=== PATIENT | female | born 1955 | race Caucasian/White ===

== ENCOUNTER → 2018-06-07 | Outpatient (CLI) | payer BC | LOC: YCFC.O 15:22 | PROVIDERS: ATTEND Nurse Practitioner Family | DX: R82.90 Unspecified abnormal findings in urine (principal) ==

== ENCOUNTER → 2019-01-20 | Outpatient (CLI) | payer BC | LOC: YCFC.O 09:16 | PROVIDERS: ATTEND Nurse Practitioner Family | DX: Z00.00 Encounter for general adult medical examination without abnormal findings (principal); E03.9 Hypothyroidism, unspecified; Z13.220 Encounter for screening for lipoid disorders ==

== ENCOUNTER → 2019-01-24 | Outpatient (CLI) | payer BC | LOC: YCFC.O 13:29 | PROVIDERS: ATTEND Nurse Practitioner Family | DX: R30.0 Dysuria (principal) ==

== ENCOUNTER 2019-05-03 16:07 | Emergency (ER) | payer BC ==
[2019-05-03] MEDS ORDERED: SODIUM CHLORIDE 0.9% 1000ML 1,000 ML IVS ONE (16:55)
--- NOTE | 2019-05-03 17:03 | ED.PDOC ---
History of Present Illness - General Chief Complaint: Head Injury Stated Complaint: Standing level fall w/ head injury Time Seen by Provider: 05/03/19 16:54 Source: family - sister Exam Limitations: no limitations - History of Present Illness Initial Comments: Antionette Maya 63 y/o female brought by family after she was found unresponsive by her sister unwitness fall laying on her back about 1600 H today on the pavement in a pool of blood on her head.She was found to be confused at that time but she was able to walk to the car and here in ER.She has history of Spinal meningitis 3 years ago in [place], [place] and jaw osteomyelitis right.Has also residual neuropathy and walks on walker.On her arrival speaks in full sentences but unable to recall incident.feels dizzy also with pain on her back which had been chronic. Occurred: this afternoon Severity: severe Head Injury Location: occipital Method of Injury: fell Other Pain/Injuries: see hpi Loss of Consciousness: prolonged (minutes) Associated Symptoms: other - dizziness Allergies/Adverse Reactions: Allergies NO KNOWN ALLERGY Allergy (Verified 05/03/19 16:20) Home Medications: Ambulatory Orders Escitalopram [Lexapro] 20 mg PO DAILY 05/03/19 Levothyroxine Sodium 25 mcg PO DAILY 05/03/19 Omeprazole 40 mg PO DAILY 05/03/19 Pregabalin [Lyrica] 50 mg PO BID 05/03/19 Sucralfate 1 gm PO QID 05/03/19 Review of Systems - Review of Systems Constitutional: States: no symptoms reported EENTM: States: no symptoms reported Respiratory: States: no symptoms reported Cardiology: States: no symptoms reported Gastrointestinal/Abdominal: States: no symptoms reported Genitourinary: States: no symptoms reported Musculoskeletal: States: no symptoms reported Neurological: States: see HPI All other Systems: Reviewed and Negative, No Change from Baseline Past Medical History (General) - Patient Medical History Hx Stroke: No Hx of COPD: No Hx Cardiac Disorders: No Hx Hypertension: No Hx Diabetes: No Hx Cancer: No Surgical History: other - Vaccination History Hx Tetanus, Diphtheria Vaccination: No Hx Influenza Vaccination: No Hx Pneumococcal Vaccination: No - Social History Hx Tobacco Use: Yes Hx Alcohol Use: Yes Hx Substance Use: No Hx Substance Use Treatment: No Hx Depression: Yes - Bipolar - Female History Patient is a Female of Child Bearing Age (10 -59 yrs old): No Patient : No Family Medical History - Family History Mother Family History: Unknown Living Status: Unknown Hx Family Cancer: Yes - dad and brother Physical Exam - Physical Exam General Appearance: Lethargic Head Injury: ecchymosis, swelling - left parietal area Eye Exam: bilateral normal ENT Exam: hearing grossly normal, no dental injury, clear fluid (ears) Neck Exam: normal alignment, normal inspection Cardiovascular/Respiratory: regular rate, rhythm, no M/R/G, normal peripheral pulses Gastrointestinal/Abdominal: non tender, soft, no organomegaly Back Exam: no CVA tenderness Extremity: no pedal edema, no calf tenderness 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 Exam: normal hearing, normal speech Motor/Sensory: no motor deficit, no sensory deficit Skin Exam: normal color, warm/dry - Damien Coma Score Best Eye Response ([place]): (3) open to voice Best Verbal Response ([place]): (5) oriented Best Motor Response ([place]): (6) obeys commands Damien Total: 14 Progress - Progress Progress: 05/03/19 18:05 Vital Signs - 8 hr 05/03/19 05/03/19 05/03/19 16:20 16:22 17:20 Temperature 95.3 F L Pulse Rate [R 72 72 61 finger] Respiratory 16 16 Rate Blood Pressure 124/81 125/78 [L brachial] O2 Sat by Pulse 95 95 Oximetry - Results/Orders Results/Orders: 05/03/19 17:00 EKG STAT Laboratory Results - last 24 hr 05/03/19 05/03/19 17:00 17:00 WBC 9.9 RBC 3.70 L Hgb 12.0 Hct 35.1 L MCV 94.9 MCH 32.5 H MCHC 34.3 RDW 14.2 Plt Count 418 H MPV 6.8 L Absolute Neuts (auto) 7.00 H Absolute Lymphs (auto) 2.10 Absolute Monos (auto) 0.50 Absolute Eos (auto) 0.20 Absolute Basos (auto) 0.10 Neutrophils % 70.7 Lymphocytes % 21.1 Monocytes % 5.5 Eosinophils % 2.2 Basophils % 0.5 PT 9.6 INR 0.96 PTT (SP) 23.6 Sodium 142 Potassium 3.3 L Chloride 107 Carbon Dioxide 24 Anion Gap 14.3 BUN 19 H Creatinine 0.67 BUN/Creatinine Ratio 28.4 H Random Glucose 87 Serum Osmolality 284.7 Lactic Acid 0.8 Calcium 8.9 Magnesium 1.6 L Total Bilirubin 0.4 Direct Bilirubin < 0.1 Indirect Bilirubin 0.3 AST 21 ALT 19 Alkaline Phosphatase 72 Creatine Kinase 178 H CK-MB (CK-2) 2.8 CK-MB (CK-2) % Not Reportable Troponin I < 0.02 Serum Total Protein 7.0 Albumin 3.9 - EKG/XRAY/CT CT: [id number] fracture CT Ordered: Yes - head-temporal bone fracture Departure - Departure Clinical Impression: Unwitnessed fall, Otorrhea, cerebrospinal fluid Skull fracture with cerebral contusion Qualifiers: Encounter type: initial encounter Fracture type: open Qualified Code(s): S02.91XB - Unspecified fracture of skull, initial encounter for open fracture Time of Disposition: 18:49 Disposition: Transfer to Hospital Condition: Fair Departure Forms: ED Discharge - Pt. Copy, Patient Portal Self Enrollment Referrals: Michelle Soria, [facility] [Primary Care Provider] - 1-2 Weeks Home Medications: Ambulatory Orders Escitalopram [Lexapro] 20 mg PO DAILY 05/03/19 Levothyroxine Sodium 25 mcg PO DAILY 05/03/19 Omeprazole 40 mg PO DAILY 05/03/19 Pregabalin [Lyrica] 50 mg PO BID 05/03/19 Sucralfate 1 gm PO QID 05/03/19 Transfer to Outside Facility - Transfer Information Accepting Provider:: Dr.Kirby-ER Jacob Accepting Facility: [facility] Reason for Transfer: required specialist not available - Neurosurgeon
--- NOTE | 2019-05-03 17:08 | CT ---
EXAM DESCRIPTION: Head CLINICAL HISTORY: 63 years Female Fall with head injury COMPARISON: None TECHNIQUE: Images were obtained in axial, sagittal, and coronal planes. This exam was performed according to our departmental dose-optimization program which includes use of Automated Exposure Control, adjustment of the mA and/or kV according to patient size and/or use of iterative reconstruction technique. FINDINGS: Subarachnoid blood right frontal temporal and temporal regions with suspected petechial hemorrhage. No midline shift. Small extra-axial blood collection right frontal and temporal regions likely subdural blood as well. Scalp soft tissue swelling with large hematoma posteriorly and laterally on the left. Subcutaneous air collections present in this region. Large fracture posterior left temporal bone with involvement mastoid air cells. Possible additional fractures left temporal parietal regions Fluid and mucosal thickening left mastoid air cells. No subdural or epidural fluid collections on left. No evidence for brain parenchymal hemorrhage on the left. No ventricular dilatation. No intraventricular blood collections. IMPRESSION: Large left temporal bone fracture with possible additional fractures left parietal bone as well as involvement left mastoid air cells. Associated extensive scalp soft tissue swelling with large hematoma posterior laterally on the left. No associated extra-axial blood collections or brain parenchymal abnormality on the left. Mild subarachnoid blood with suspected petechial hemorrhage and small subdural blood collection right frontotemporal and temporal regions likely contrecoup injury. No midline shift. Electronically signed by: Gracie Beverly MD 05/03/2019 5:06 PM CDT
--- NOTE | 2019-05-03 17:18 | RAD ---
EXAM: XR Chest, 1 View CLINICAL HISTORY: ams TECHNIQUE: Frontal view of the chest. COMPARISON: No relevant prior studies available. FINDINGS: Limitations: None. Lungs: Unremarkable. No consolidation. Pleural space: Unremarkable. No pneumothorax. Heart: Unremarkable. No cardiomegaly. Mediastinum: Unremarkable. Bones/joints: Unremarkable. IMPRESSION: No acute findings. Electronically signed by: Evelyn Donato MD 05/03/2019 5:16 PM CDT
--- NOTE | 2019-05-03 18:04 | CT ---
EXAM: CT Cervical Spine Without Intravenous Contrast CLINICAL HISTORY: fell and hit head TECHNIQUE: Axial computed tomography images of the cervical spine without intravenous contrast. Sagittal and coronal reformatted images were created and reviewed. This CT exam was performed using one or more of the following dose reduction techniques: automated exposure control, adjustment of the mA and/or kV according to patient size, and/or use of iterative reconstruction technique. COMPARISON: No relevant prior studies available. FINDINGS: Limitations: None. Vertebrae: There is a few millimeters of retrolisthesis of C5 with respect levels above and below. There is mild to moderate spondylosis most notable at C5-C6. There is diffuse facet arthrosis. No acute fracture. Discs/spinal canal/neural foramina: There is moderate disc space narrowing C5-C6. Mild narrowing noted at other levels. Soft tissues: There is a left temporal occipital scalp hematoma. Mastoid air cells: There is a nondepressed fracture of the left temporal bone involving the mastoid. There is left mastoid fluid. IMPRESSION: 1. There is a nondepressed fracture of the left temporal bone involving the lateral mastoid. 2. No cervical fracture. 3. There is a left temporal occipital scalp hematoma. Electronically signed by: Evelyn Donato MD 05/03/2019 6:02 PM CDT
[2019-05-03] MEDS ORDERED: MAGNESIUM SULFATE PREMIX 2GM 2 GM in PREMIX BAG 1 BAG IVPB ONE (18:33)
[2019-05-03] MEDS ORDERED: fentaNYL CITRATE INJ 50 MCG/ML AMP IV ONE (18:33)
[2019-05-03] MEDS ORDERED: TETANUS,DIPHTHERIA,PERTUSSIS 1 EA SYG IM ONE (18:36)
[2019-05-03] MEDS ORDERED: MAGNESIUM SULFATE PREMIX 2GM 50 ML IVPB ONE (19:04)
[2019-05-03 19:34] VITALS: BP 151/89; O2SAT 96
[2019-05-03 19:42] VITALS: TEMP 97.3
== END 2019-05-03 19:26 | disposition short-term general hospital (02) ==
LOC: ER 16:07
DX: S02.19XB Other fracture of base of skull, initial encounter for open fracture (principal); S00.03XA Contusion of scalp, initial encounter; G96.0 Cerebrospinal fluid leak; F31.9 Bipolar disorder, unspecified; R41.0 Disorientation, unspecified; Z86.61 Personal history of infections of the central nervous system; W18.30XA Fall on same level, unspecified, initial encounter; Y92.9 Unspecified place or not applicable
CPT/HCPCS: 36415; 70450; 71045; 72125; 80048; 80076; 82550; 82553; 83605; 84484; 85025; 85610; 85730; 90471; 90715; 93005; J3010; J3475; J7030

== ENCOUNTER → 2019-06-26 | Outpatient (CLI) | payer BC | LOC: HHH 11:06 | PROVIDERS: ATTEND Nurse Practitioner Family | DX: R82.998 Other abnormal findings in urine (principal); R35.0 Frequency of micturition; S02.82XD Fracture of other specified skull and facial bones, left side, subsequent encounter for fracture with routine healing ==

== ENCOUNTER → 2019-11-16 | Outpatient (CLI) | payer BC | LOC: YCFC.O 16:02 | PROVIDERS: ATTEND Nurse Practitioner Family | DX: R63.5 Abnormal weight gain (principal); R53.83 Other fatigue; M79.2 Neuralgia and neuritis, unspecified ==

== ENCOUNTER → 2020-02-03 | Outpatient (CLI) | payer BC | LOC: YCFC.O 14:41 | PROVIDERS: ATTEND Nurse Practitioner | DX: R19.7 Diarrhea, unspecified (principal); R14.0 Abdominal distension (gaseous) ==

== ENCOUNTER → 2020-02-16 | Outpatient (CLI) | payer BC | LOC: YCFC.O 15:46 | PROVIDERS: ATTEND Nurse Practitioner | DX: R19.7 Diarrhea, unspecified (principal); E03.9 Hypothyroidism, unspecified ==

== ENCOUNTER 2020-03-26 17:10 | Emergency (ER) | payer BC ==
[2020-03-26 17:32] VITALS: O2SAT 98
[2020-03-26] MEDS ORDERED: fentaNYL PATCH 25 MCG/HR 1 EA PATCH TD SCH (18:00)
[2020-03-26] MEDS ORDERED: NITROFURANTOIN 50 MG CAP PO ONE (18:01)
--- NOTE | 2020-03-26 18:04 | ED.PDOC ---
History of Present Illness - General Chief Complaint: Back Pain or Injury Stated Complaint: out of pain meds,low back pain,diarrhea Time Seen by Provider: 03/26/20 17:16 Source: patient Exam Limitations: no limitations - History of Present Illness Initial Comments: The patient is a 64-year-old female presented emergency room secondary to worsening abdominal pain today associated with diarrhea and some nausea. The patient ran out of her opiate pain medication about 48 hours ago. She is having increased chronic back pain as well. She has had some diaphoresis. No point abdominal pain. She thinks she may also have a small urinary tract infection based on some frequency. She has had some increased diarrhea today. She does have chronic bowel issues to start with. Timing/Duration: other - 10 hours Severity: moderate Improving Factors: nothing Worsening Factors: nothing Associated Symptoms: malaise Allergies/Adverse Reactions: Allergies Penicillins Allergy (Verified 03/26/20 17:38) Sulfa Antibiotics Allergy (Verified 03/26/20 17:38) Home Medications: Ambulatory Orders Escitalopram [Lexapro] 20 mg PO DAILY 05/03/19 Sucralfate 1 gm PO BID 05/03/19 Acyclovir [Zovirax] 400 mg PO PRN 03/26/20 Calcium & Phosphorus W/ Vitami [Citracal+D3 250-107-500 mg-mg-Unit] 3 chw PO DAILY 03/26/20 Dicyclomine HCl [Bentyl] 20 mg PO BID 03/26/20 Doxepin HCl 50 mg PO DAILY 03/26/20 Esomeprazole Magnesium 40 mg PO DAILY 03/26/20 Levothyroxine Sodium [Euthyrox] 25 mcg PO DAILY 03/26/20 Nitrofurantoin Monohydrate Mac [Macrobid] 100 mg PO BID #10 capsule 03/26/20 Oxybutynin Chloride [Oxybutynin Chloride ER] 5 mg PO DAILY 03/26/20 Oxycodone HCl [Roxicodone] 15 mg PO Q6H 03/26/20 Review of Systems - Review of Systems Constitutional: States: malaise EENTM: States: no symptoms reported Respiratory: States: no symptoms reported Cardiology: States: no symptoms reported Gastrointestinal/Abdominal: States: diarrhea, nausea Genitourinary: States: no symptoms reported Musculoskeletal: States: back pain Skin: States: no symptoms reported Neurological: States: anxiety Endocrine: States: excessive sweating All other Systems: No Change from Baseline Past Medical History (General) - Patient Medical History Hx Stroke: No Hx of COPD: No Hx Cardiac Disorders: No Hx Hypertension: No Hx Thyroid Disease: Yes - Hypo Hx Diabetes: No Hx Gastroesophageal Reflux: Yes Hx Cancer: No - Vaccination History Hx Tetanus, Diphtheria Vaccination: No Hx Influenza Vaccination: No Hx Pneumococcal Vaccination: Yes - Social History Hx Tobacco Use: Yes Hx Alcohol Use: Yes Hx Substance Use: No Hx Substance Use Treatment: No Hx Depression: Yes - Bipolar - Female History Patient : No Family Medical History - Family History Mother Family History: Unknown Living Status: Unknown Hx Family Cancer: Yes - dad and brother Physical Exam - Physical Exam General Appearance: Alert, Anxious Eye Exam: bilateral normal Ears, Nose, Throat: hearing grossly normal, normal pharynx Neck: non-tender, supple Respiratory: lungs clear, normal breath sounds, no respiratory distress, no accessory muscle use Cardiovascular/Chest: normal peripheral pulses, regular rate, rhythm, no edema Peripheral Pulses: radial,right: 2+, radial,left: 2+ Gastrointestinal/Abdominal: other - Diffuse discomfort to palpation but no point tenderness and no rebound or peritoneal signs. No palpable mass. Rectal Exam: deferred Back Exam: other - Diffuse discomfort of her low back. 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 The patient is having a fentanyl patch placed. It can remain in place for up to 72 hours. This should give her enough time to get her prescription from her routine pain management doctor as she did not have a ride to get it yesterday. She is to discontinue the patch when she resumes her routine pain medications. She is to continue her other routine home medications. She does appear to have a small urinary tract infection and will be placed on 5 days of Macrobid for that. Urine culture is being done. Keep well-hydrated. ER warnings are given. [email or web address] suresh [id number] - Results/Orders Results/Orders: Laboratory Tests 03/26/20 17:51 Urine Color Yellow Urine Appearance Sl cloudy Urine pH 5.5 Ur Specific Neeses 1.020 Urine Protein 30 Urine Glucose (UA) Negative Urine Ketones Negative Urine Blood Negative Urine Nitrite Positive H Urine Bilirubin Negative Urine Urobilinogen 0.2 Ur Leukocyte Esterase Negative Urine RBC 1-3 Urine WBC 3-5 H Ur Epithelial Cells 10-20 Urine Bacteria 3+ H Departure - Departure Clinical Impression: Opiate withdrawal, Cystitis Disposition: Discharge to Home or Self Care Condition: Fair Departure Forms: ED Discharge - Pt. Copy, Patient Portal Self Enrollment Instructions: Prescription Drug Withdrawal (DC), Urinary Tract Infection, Adult (DC) Diet: regular diet Activity: increase activity as tolerated Referrals: Suzi Concepcion FNP [Primary Care Provider] - 1-2 Weeks Prescriptions: Nitrofurantoin Monohydrate Mac [Macrobid] 100 mg PO BID #10 capsule Home Medications: Ambulatory Orders Escitalopram [Lexapro] 20 mg PO DAILY 05/03/19 Sucralfate 1 gm PO BID 05/03/19 Acyclovir [Zovirax] 400 mg PO PRN 03/26/20 Calcium & Phosphorus W/ Vitami [Citracal+D3 250-107-500 mg-mg-Unit] 3 chw PO DAILY 03/26/20 Dicyclomine HCl [Bentyl] 20 mg PO BID 03/26/20 Doxepin HCl 50 mg PO DAILY 03/26/20 Esomeprazole Magnesium 40 mg PO DAILY 03/26/20 Levothyroxine Sodium [Euthyrox] 25 mcg PO DAILY 03/26/20 Nitrofurantoin Monohydrate Mac [Macrobid] 100 mg PO BID #10 capsule 03/26/20 Oxybutynin Chloride [Oxybutynin Chloride ER] 5 mg PO DAILY 03/26/20 Oxycodone HCl [Roxicodone] 15 mg PO Q6H 03/26/20 Additional Instructions: The patient is a 64-year-old female presented emergency room with a constellation of symptoms that is most consistent with opiate withdrawal. The patient is having a fentanyl patch placed. It can remain in place for up to 72 hours. This should give her enough time to get her prescription from her routin e pain management doctor as she did not have a ride to get it yesterday. She is to discontinue the patch when she resumes her routine pain medications. She is to continue her other routine home medications. She does appear to have a small urinary tract infection and will be placed on 5 days of Macrobid for that. Urine culture is being done. Keep well-hydrated. ER warnings are given.
[2020-03-26] MEDS ORDERED: NITROFURANTOIN MONOHYDRATE MAC 100 MG CAP PO ONE (18:09)
[2020-03-26 18:29] VITALS: BP 149/88; TEMP 98.3
== END 2020-03-26 18:21 | disposition home or self-care (01) ==
LOC: ER 17:10
DX: F11.23 Opioid dependence with withdrawal (principal); N30.90 Cystitis, unspecified without hematuria; M54.5 Low back pain; F17.200 Nicotine dependence, unspecified, uncomplicated

== ENCOUNTER 2020-03-26 23:58 | Inpatient (IN) | payer BC ==
[2020-03-27] MEDS ORDERED: PROMETHAZINE HCL INJ 25 MG in SODIUM CHLORIDE 0.9% 50ML 50 ML IVPB ONE (00:03)
[2020-03-27] MEDS ORDERED: SODIUM CHLORIDE 0.9% 1000ML 1,000 ML IVS ONE (00:03)
[2020-03-27] MEDS ORDERED: PANTOPRAZOLE SODIUM IV 40 MG VIAL IV ONE (00:04)
[2020-03-27] MEDS ORDERED: LOPERAMIDE CAP 2 MG CAP PO ONE (00:04)
[2020-03-27] MEDS ORDERED: ONDANSETRON ODT 8 MG TAB SL ONE (00:06)
[2020-03-27] MEDS ORDERED: PROMETHAZINE HCL INJ 25 MG/ML VIAL ONE (00:13)
[2020-03-27] MEDS ORDERED: cefTRIAXone SODIUM 1 GM in SODIUM CHL 0.9% 50ML MIN-BAG+ 50 ML IVPB ONE (00:14)
--- NOTE | 2020-03-27 00:29 | ED.PDOC ---
History of Present Illness - General Chief Complaint: GI Problem Stated Complaint: diarrhea, vomiting Time Seen by Provider: 03/27/20 00:01 Source: patient Exam Limitations: no limitations - History of Present Illness Initial Comments: The patient is a 64-year-old female presenting to the emergency room for the second time in last 24 hours secondary to nausea vomiting and diarrhea. She was seen earlier today and it was felt that the presentation was most consistent with opiate withdrawal as she had run out of her opiates around 48 hours prior. Fentanyl patch was placed. The patient reports that the back pain is doing much better but she still having nausea vomiting and copious diarrhea. Additional information gained in the second interview shows that she had also run out of her doxepin 2 days prior. Doxepin withdrawal can lead to significant diarrhea and GI issues. The patient had a endoscopy with Dr. Gilliland last week and the patient was also started on a mild laxative at that time. Her last dose of the laxative was yesterday morning. She is not sure of what diagnosis he has given her. She is uncertain if she has inflammatory bowel disease or irritable bowel syndrome. She does take medications that are consistent with treatment for irritable bowel syndrome. She has not been on any steroids or mesalamine. No fevers. No point abdominal pain. The fentanyl patch remains in place. No syncope or near syncope. She had a stool culture and a C. difficile done about a month ago. She has been having GI issues for quite some time with. Timing/Duration: other - About 18 hours Severity: severe Improving Factors: nothing Worsening Factors: nothing Associated Symptoms: loss of appetite, malaise, nausea/vomiting Allergies/Adverse Reactions: Allergies Penicillins Allergy (Verified 03/26/20 17:38) Sulfa Antibiotics Allergy (Verified 03/26/20 17:38) Home Medications: Ambulatory Orders Escitalopram [Lexapro] 20 mg PO DAILY 05/03/19 Sucralfate 1 gm PO BID 05/03/19 Acyclovir [Zovirax] 400 mg PO PRN 03/26/20 Calcium & Phosphorus W/ Vitami [Citracal+D3 250-107-500 mg-mg-Unit] 3 chw PO DAILY 03/26/20 Dicyclomine HCl [Bentyl] 20 mg PO BID 03/26/20 Doxepin HCl 50 mg PO DAILY 03/26/20 Esomeprazole Magnesium 40 mg PO DAILY 03/26/20 Levothyroxine Sodium [Euthyrox] 25 mcg PO DAILY 03/26/20 Nitrofurantoin Monohydrate Mac [Macrobid] 100 mg PO BID #10 capsule 03/26/20 Oxybutynin Chloride [Oxybutynin Chloride ER] 5 mg PO DAILY 03/26/20 Oxycodone HCl [Roxicodone] 15 mg PO Q6H 03/26/20 Review of Systems - Review of Systems Constitutional: States: malaise EENTM: States: no symptoms reported Respiratory: States: no symptoms reported Cardiology: States: no symptoms reported Gastrointestinal/Abdominal: States: abdominal pain, diarrhea, nausea, vomiting Genitourinary: States: no symptoms reported Musculoskeletal: States: back pain Skin: States: no symptoms reported Neurological: States: no symptoms reported Endocrine: States: no symptoms reported All other Systems: No Change from Baseline Past Medical History (General) - Patient Medical History Hx Stroke: No Hx of COPD: No Hx Cardiac Disorders: No Hx Hypertension: No Hx Thyroid Disease: Yes - Hypo Hx Diabetes: No Hx Gastroesophageal Reflux: Yes Hx Cancer: No - Vaccination History Hx Tetanus, Diphtheria Vaccination: No Hx Influenza Vaccination: No Hx Pneumococcal Vaccination: Yes - Social History Hx Tobacco Use: Yes Hx Alcohol Use: Yes Hx Substance Use: No Hx Substance Use Treatment: No Hx Depression: Yes - Bipolar - Female History Patient : No Family Medical History - Family History Mother Family History: Unknown Living Status: Unknown Hx Family Cancer: Yes - dad and brother Physical Exam - Physical Exam General Appearance: Alert, Anxious Eye Exam: bilateral normal Ears, Nose, Throat: hearing grossly normal, normal pharynx Neck: non-tender, supple Respiratory: lungs clear, normal breath sounds, no respiratory distress, no accessory muscle use Cardiovascular/Chest: normal peripheral pulses, regular rate, rhythm, no edema Peripheral Pulses: radial,right: 2+, radial,left: 2+ Gastrointestinal/Abdominal: other - Diffuse vague discomfort to palpation. No rebound or peritoneal signs. No point tenderness. Rectal Exam: deferred Extremity: no pedal edema, no calf tenderness, normal capillary refill Neurologic: alert, normal mood/affect - The patient is anxious, oriented x 3 Skin Exam: normal color Comments: Laboratory Tests 03/27/20 03/27/20 03/27/20 00:25 00:25 00:25 WBC 15.2 H RBC 4.86 Hgb 14.7 Hct 44.3 MCV 91.0 MCH 30.2 MCHC 33.1 RDW 14.4 Plt Count 394 MPV 6.6 L Absolute Neuts (auto) 10.70 H Absolute Lymphs (auto) 3.10 Absolute Monos (auto) 1.30 H Absolute Eos (auto) 0.00 Absolute Basos (auto) 0.10 Neutrophils % 70.5 Lymphocytes % 20.3 Monocytes % 8.4 Eosinophils % 0.3 L Basophils % 0.5 Sodium 136 Potassium 2.6 L Chloride 106 Carbon Dioxide 14 L* Anion Gap 18.6 H BUN 16 Creatinine 0.92 BUN/Creatinine Ratio 17.4 Random Glucose 91 Serum Osmolality 272.7 L Lactic Acid 1.8 Calcium 9.7 Magnesium Total Bilirubin 1.1 H AST 1054 H ALT 910 H Alkaline Phosphatase 115 Creatine Kinase 130 CK-MB (CK-2) 4.3 CK-MB (CK-2) % Not Reportable Troponin I < 0.02 Serum Total Protein 7.5 Albumin 4.6 Globulin 2.9 Albumin/Globulin Ratio 1.6 Amylase 94 Lipase 47 TSH 03/27/20 00:25 WBC RBC Hgb Hct MCV MCH MCHC RDW Plt Count MPV Absolute Neuts (auto) Absolute Lymphs (auto) Absolute Monos (auto) Absolute Eos (auto) Absolute Basos (auto) Neutrophils % Lymphocytes % Monocytes % Eosinophils % Basophils % Sodium Potassium Chloride Carbon Dioxide Anion Gap BUN Creatinine BUN/Creatinine Ratio Random Glucose Serum Osmolality Lactic Acid Calcium Magnesium 1.4 L Total Bilirubin AST ALT Alkaline Phosphatase Creatine Kinase CK-MB (CK-2) CK-MB (CK-2) % Troponin I Serum Total Protein Albumin Globulin Albumin/Globulin Ratio Amylase Lipase TSH 3.15 CT scan abdomen pelvis was supposed to be done with IV contrast however the IV infiltrated into her arm. 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 Hepatic steatosis. There is prominent duodenum and proximal jejunum consistent with enteritis. Progress - Progress Progress: 03/27/20 02:21 Vital Signs - 24 hr 03/27/20 03/27/20 03/27/20 00:15 01:00 01:53 Temperature 97.6 F Pulse Rate [ 86 81 88 tele] Respiratory 18 18 18 Rate Blood Pressure 158/86 124/82 121/86 [Left Arm] O2 Sat by Pulse 97 97 96 Oximetry 03/27/20 02:21 The patient is a 64-year-old female presenting for the second time in 24 hours secondary to nausea vomiting and diarrhea. The presentation was initially attributed to opiate and possibly doxepin withdrawal. The placement of the fentanyl patch this morning did help significantly with the pain and the flushing however she is continued to have nausea vomiting and diarrhea. For this reason she showed back up to the emergency room tonight. She was also unable to hold down her Macrobid for the urinary tract infection. Work-up here shows what appears to be enteritis on the CT scan and either an acute or subacute hepatitis on the lab work. No elevation of alkaline phosphatase or amylase or lipase. No evidence of abnormality on the CT scan with the gallbladder or the pancreas. There is mild hepatic steatosis. It is possible that the elevated liver function tests may be related to trauma from the upper and lower endoscopy a week ago. The patient has resultant metabolic acidosis along with significant hypokalemia hypomagnesemia. She has received a liter of IV fluids. She is receiving potassium and magnesium supplements. She is also receiving acid reducing medications as well as nausea medications. The patient will likely need a right upper quadrant ultrasound tomorrow for further evaluation of the liver. The viral hepatitis panel has been sent. Blood cultures have been done. The patient is receiving doses of Levaquin and Flagyl here tonight for the possibility of a bacterial source for the leukocytosis. Stool sample is being collected to test for a culture and for C. difficile. No history of C. difficile colitis. The patient had the scope done with the gut snatcher a week ago. Hopefully tomorrow we can obtain a report of the scope and any biopsies or impressions that the gut snatcher had. Admit fo r continued care, symptom control, electrolyte correction and rehydration. The patient does likely need to be restarted on doxepin tomorrow. It is not in our pharmacy so it will need to be obtained. Admit for continued care. [email or web address] [email or web address] Departure - Departure Clinical Impression: Metabolic acidosis, Acute hepatitis, Hypokalemia, Hypomagnesemia, Dehydration Medication withdrawal Qualifiers: Substance type: opioid Qualified Code(s): F11.23 - Opioid dependence with withdrawal Disposition: Admit Patient Condition: Fair Departure Forms: ED Discharge - Pt. Copy, Patient Portal Self Enrollment Referrals: Suzi Concepcion FNP [Primary Care Provider] - 1-2 Weeks Home Medications: Ambulatory Orders Escitalopram [Lexapro] 20 mg PO DAILY 05/03/19 Sucralfate 1 gm PO BID 05/03/19 Acyclovir [Zovirax] 400 mg PO PRN 03/26/20 Calcium & Phosphorus W/ Vitami [Citracal+D3 250-107-500 mg-mg-Unit] 3 chw PO DAILY 03/26/20 Dicyclomine HCl [Bentyl] 20 mg PO BID 03/26/20 Doxepin HCl 50 mg PO DAILY 03/26/20 Esomeprazole Magnesium 40 mg PO DAILY 03/26/20 Levothyroxine Sodium [Euthyrox] 25 mcg PO DAILY 03/26/20 Nitrofurantoin Monohydrate Mac [Macrobid] 100 mg PO BID #10 capsule 03/26/20 Oxybutynin Chloride [Oxybutynin Chloride ER] 5 mg PO DAILY 03/26/20 Oxycodone HCl [Roxicodone] 15 mg PO Q6H 03/26/20 Decision To Admit - Decistion To Admit Decision to Admit Reason: Medical Nature Decision to Admit Date: 03/27/20 Decision to Admit Time: 02:27
--- NOTE | 2020-03-27 01:01 | RAD ---
CLINICAL HISTORY: nvd COMPARISON: None. TECHNIQUE: XR ABDOMEN SUPINE AND ERECT WITH CHEST (ABD ACUTE SERIES) 03/27/2020 12:03 AM CDT FINDINGS: Bowel gas pattern is nonspecific. There are no abnormal radiopaque foreign bodies or abnormal calcifications. Osseous structures are grossly unremarkable. The heart is normal in size. Lungs are clear. IMPRESSION: No bowel obstruction. Electronically signed by: Earl Sim MD 03/27/2020 1:00 AM CDT
[2020-03-27] MEDS ORDERED: POTASSIUM CHLORIDE ELIXIR 20 MEQ/15 ML UD PO ONE (01:04)
[2020-03-27] MEDS ORDERED: POTASSIUM CHLORIDE INJ 40 MEQ 40 MEQ in SODIUM CHLORIDE 0.9% 250ML 250 ML IVPB ONE (01:04)
[2020-03-27] MEDS ORDERED: metroNIDAZOLE IV PREMIX 500MG 500 MG in PREMIX BAG 1 BAG IVPB ONE (01:12)
[2020-03-27] MEDS ORDERED: levoFLOXacin 500MG IV 500 MG in PREMIX BAG 1 BAG IVPB ONE (01:12)
[2020-03-27] MEDS ORDERED: MAGNESIUM SULFATE PREMIX 4GM 4 GM in PREMIX BAG 1 BAG IVPB ONE (01:57)
--- NOTE | 2020-03-27 02:01 | CT ---
EXAM DESCRIPTION: CT ABDOMEN AND PELVIS WITH CONTRAST CLINICAL HISTORY: nvd, elevated lfts COMPARISON: None Available. TECHNIQUE: CT of the abdomen and pelvis performed following IV administration of iodinated contrast however the focal tracer there is no contrast within the vascular system. FINDINGS: Lung Bases: Minimal dependent atelectasis. Bones: Chronic appearing compression deformity of the L1 vertebral body. Endplate spondylosis of the spine. Abdomen: Liver: The liver has normal size and decreased density. No intrahepatic biliary dilatation. Gallbladder: No calcified gallstones. Spleen, Pancreas, and Adrenal Glands: The spleen, pancreas, and adrenal glands are unremarkable. Kidneys: No hydronephrosis or obstructing calculus. Punctate nonobstructing bilateral nephrolithiasis. Vasculature: Aortoiliac atherosclerosis. IVC is unremarkable. 6 mm peripherally calcified structure arising from a branch of the right renal artery may represent a small aneurysm. The portal vein is patent. The proximal visceral and renal arteries are patent. Stomach: The stomach has normal course. Other: No free intraperitoneal air. No free fluid or lymphadenopathy. Pelvis: Bladder: Urinary bladder is unremarkable. Bowel: Mild prominence of the duodenum and proximal jejunum without transition point or significant distal decompression. Appendix: Not identified. Pelvis: Uterus is not enlarged. Possible calcified uterine fibroid. IMPRESSION: 1. Findings compatible with mild nonspecific enteritis. 2. There is a 6 mm peripherally calcified structure arising from the right renal artery. This may represent a small aneurysm. Follow-up CTA of the abdomen in 6 months recommended to document stability. 3. Nonobstructing bilateral nephrolithiasis. 4. Hepatic steatosis. This exam was performed according to our departmental dose-optimization program, which includes automated exposure control, adjustment of the mA and/or kV according to patient size and/or use of iterative reconstruction technique. Electronically signed by: Harvey Draper 03/27/2020 2:00 AM CDT
--- NOTE | 2020-03-27 02:31 | HP ---
SUPERVISING PHYSICIAN: Georgi Borrego MD CHIEF COMPLAINT: Nausea, vomiting, diarrhea HISTORY OF PRESENT ILLNESS: Ms. Maya is a 64 year-old female patient who presented to the Emergency Room for her second visit within the last 24 hours due to persistent nausea and vomiting with associated diarrhea. She had been seen earlier in the Emergency Room and it was felt at that time the patient was having mild opioid withdrawals as she had run out of her Oxycodone approximately 48 hours previously. At that visit, she was started on a Fentanyl patch and noticed her symptoms returned with copious amounts of diarrhea. She does have a history of chronic diarrhea and has been worked up in the past. Within the last month she had a scope done for her GI issues. The scope was done by Dr. Gilliland last week and at that time she was started on a mild laxative. She did endorse she had finished her last laxative 24 hours prior to the initial start of these current symptoms. She has not been formally diagnosed Crohn's OR any specific medical diagnosis other than questionable Crohn's-like illness versus irritable bowel syndrome. She is taking Doxepin and did run out of that 2 days previous as well. She is not currently on any steroids or any treatments for any inflammatory disease. She had stool cultures as well as C-diff which were all done about a month previous and all were negative. On this visit to the Emergency Room, her workup did show she had a leukocytosis of 15,200 without a left shift but she had a potassium of 2.6 with anion gap of 18.6 and C02 of 14. She also has elevated liver functions in the form of AST, ALT but this per history is chronic and she has not been diagnosed with any hepatitis acutely. On her initial visit to the Emergency Room on March 26, she was also found to have a urinary tract infection and was started on Macrobid. CT of her abdomen with contrast per radiology interpretation showed findings compatible with mild nonspecific enteritis. On that same CT was noted hepatic steatosis. She was given a K rider in the Emergency Room and started on antibiotics including Levaquin and Flagyl. Given the number of times in the Emergency Room with persistent and worsening nausea, vomiting, diarrhea, the patient is going to be admitted for treatment of acute gastroenteritis and correction of her hypokalemia. She was also noted to be mildly metabolic acidotic on labs. She is admitted in stable condition. PAST MEDICAL HISTORY: 1. Chronic diarrhea currently being worked up by Dr. Gilliland with last colonoscopy 2 weeks previous. 2. 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 3. Hypothyroidism on supplementation. 4. Depression, bipolar disorder. 5. Chronic urinary tract infections. PAST SURGICAL HISTORY: 1. Tubal ligation. 2. 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 3. Right knee surgery as a child. CURRENT MEDICATIONS: 1. Sucralfate 1 gram b.i.d. 2. Oxycodone 15 mg every 6 hours. 3. Oxybutynin chloride 5 mg daily. 4. Macrobid 100 mg b.i.d. 5. Levothyroxine 25 mcg daily. 6. Esomeprazole. 7. Nexium 40 mg daily. 8. Lexapro 20 mg daily. 9. Doxepin 15 mg daily. 10. Bentyl 20 mg b.i.d. 11. Citracal daily. 12. Acyclovir 400 mg p.r.n. ALLERGIES: PENICILLIN, SULFA ANTIBIOTICS. FAMILY HISTORY: Mother at age 87 with no chronic illness. Father at age 79 with complications of hypertension, depression and diabetes. She has one sister with epilepsy. She has another sister with multiple sclerosis. She has one brother who has diabetes and hypertension. SOCIAL HISTORY: The patient lives with her sister in [place], [place]. She is . She has 3 children. 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 She currently utilizes tobacco products in the form of vaping and drinks alcohol on a rare occasion. She does not use any illicit drugs. REVIEW OF SYSTEMS: CONSTITUTIONAL: Positive for general malaise, generalized weakness, no unexplained weight loss, no fevers or chills. HEENT: Denies headaches. vision changes, sore throat. nasal congestion, earaches. CHEST: Denies shortness of breath, wheezing or coughing. HEART: Denies chest pain, palpitations, tachycardia or syncopal episodes. ABDOMEN: As noted in history of present illness. Generalized diffuse abdominal pain with associated nausea, vomiting, diarrhea. GENITOURINARY: Diagnosed with a recent urinary tract infection but denies any actual dysuria, hematuria or polyuria. MUSCULOSKELETAL: Chronic back pain. SKIN: Denies lesions, rashes, moles or unexplained changes. NEUROLOGIC: Denies ataxia, seizures, paresthesias or other neurological deficits. HEMATOLOGICAL: Denies unexplained bleeding, bruising or transfusion reactions. PHYSICAL EXAMINATION: VITAL SIGNS: Temperature 97.7, blood pressure 99/56, respirations 12, oxygen saturation(*% on tiana air. GENERAL: On examination after admission to medical/surgical floor, the patient is showing to be resting comfortably and in no acute distress. She is alert. HEENT: Tympanic membranes are clear bilaterally. Oropharynx pink with some notable dry mucous membranes. NECK: Supple, non-tender, full range of motion. No jugular venous distention. CHEST: Lungs are clear to auscultation bilaterally without rhonchi, rales, or wheezes. CARDIOVASCULAR: Regular rate and rhythm without appreciable murmurs, rubs, or gallops ABDOMEN: Soft with diffuse pain on palpation, no rebound, peritoneal or point tenderness. Bowel sounds are active. EXTREMITIES: No cyanosis, clubbing, or edema. NEUROLOGIC: Cranial nerves II through XII are grossly intact. She is alert and oriented x3. SKIN: Warm, pink and dry. RECTAL: Exam deferred. LABORATORY: White count 15,200, hemoglobin 14.7, hematocrit 44.3, platelet count at 394,000. Differential did not show to have a left shift currently. Chemistries show a metabolic acidosis with a carbon dioxide of 14, anion gap of 18.6, potassium 2.6. Sodium and chloride were normal. BUN 16, creatinine 0.92, lactic acid 1.8, calcium 9.7, magnesium 1.4, bilirubin 1.1. AST at 1054, ALT at 910. Troponin less than 0.02. Lipase normal at 47, amylase 94, TSH normal at 3.15. Hepatitis panel is pending. MICROBIOLOGY: Blood cultures are pending. RADIOLOGY: Abdominal/pelvic CT with contrast per radiology interpretation showed hepatic steatosis with findings compatible with mild nonspecific enteritis that was noted to be 6 mm peripheral calcified structure arising from the right renal artery, recommend followup in 6 months to document stability. There was note of bilateral nonobstructive nephrolithiasis. Abdominal ultrasound per radiology interpretation showed gallbladder contracted with wall thickening which may be due to contraction. There is no echogenic sludge or stones, non-tender with transducer pressure. Upper normal caliber of the common bile duct. Liver was noted with normal echogenicity, borderline enlarged. Pancreas was negative. Spleen was unremarkable. Bilateral kidneys were small with significantly thinned cortex and increased echogenicity for age suggesting medical renal disease. ASSESSMENT: 1. Acute gastroenteritis, etiology uncertain with patient having a history of irritable bowel syndrome versus nonspecific inflammatory bowel. 2. Nausea and vomiting associated with #1. 3. Chronic pain management from peripheral neuropathies on Oxycodone. 4. Urinary tract infection on Macrodantin prior to admission. 5. Electrolyte imbalance to include a hypokalemia and hypomagnesemia. 6. Metabolic acidosis secondary to #2. 7. Mild dehydration secondary to #2. 8. Elevated transaminase, etiology uncertain, followed by GI specialist, Dr. Gilliland, with hepatitis panel pending. 9. History of hypothyroidism on supplementation. 10. History of depression and bipolar disorder. PLAN: Ms. Maya is going to be admitted for intractable nausea and vomiting, questionable gastroenteritis with associated metabolic acidosis. She was given fluids in the Emergency Room. Will continue with D5 half-normal saline with 20 of potassium in efforts to replace her potassium as well as she was given a replacement of magnesium. Will put her on a clear liquid diet, encouraged p.o. hydration as well as continue with IV hydration. I anticipate her length of stay to be at least 2 to 3 days, maybe discharge later tomorrow if she continues to show improvement. She was started on antibiotics including Levaquin and Flagyl and has shown good response to that treatment. Will continue that treatment while in the hospital, possibly continue with discharge antibiotics. Will continue to monitor and treat until discharge. She will be on DVT prophylaxis per protocol. Will give her Protonix for PPI for GI protection. Will plan to repeat labs as needed. She has Zofran and Phenergan as needed for nausea and vomiting. Will resume her home medications as soon as those are updated and verified including her Oxycodone and Bentyl and Doxepin which could be resulting in some of her symptoms but she has missed several doses of this in the last 24 hours. Will hold off on any additional GI workup at this point as she has recently had a colonoscopy and is followed by GI. If she is not showing any improvement tomorrow, certainly we will touch base with Dr. Gilliland to see if he has any further recommendations on treatment but at this point, she seems to be progressing with the current treatment plan. Hopefully we will be able to transition her to outpatient management within the next 24-48 hours. Until then, we will continue to monitor and treat as needed. #[id number] [facility]
[2020-03-27] MEDS ORDERED: SODIUM CHLORIDE 0.9% (FLUSH) 10 ML SYG IV PRN (03:14)
[2020-03-27] MEDS ORDERED: PROMETHAZINE HCL INJ 25 MG in SODIUM CHLORIDE 0.9% 50ML 50 ML IVPB PRN (03:20)
[2020-03-27] MEDS ORDERED: IV SET AND CAP CHANGE INJ INJ SCH (03:30)
[2020-03-27] MEDS: KCL 20MEQ/D5 1/2NS 1,000 ML IVS PRN ×2 (03:58→13:29)
[2020-03-27] MEDS ORDERED: metroNIDAZOLE IV PREMIX 500MG 0 ML IVPB ONE (05:21)
[2020-03-27] MEDS: metroNIDAZOLE IV PREMIX 500MG 500 MG in PREMIX BAG 1 BAG IVPB SCH ×3 (06:12→22:18)
[2020-03-27] MEDS: SODIUM CHLORIDE 0.9% (FLUSH) 10 ML SYG IV SCH ×2 (09:19→20:37)
[2020-03-27] MEDS ORDERED: ESOMEPRAZOLE MAGNESIUM 40 MG PO SCH (10:30)
[2020-03-27] MEDS ORDERED: OXYCODONE HCL 15 MG PO SCH (10:30)
[2020-03-27] MEDS ORDERED: OXYBUTYNIN CHLORIDE 5 MG PO SCH (10:30)
[2020-03-27] MEDS: SUCRALFATE 1 GM TAB PO SCH ×2 (11:18→20:36)
[2020-03-27] MEDS: ESCITALOPRAM 10 MG TAB PO SCH (11:19)
[2020-03-27] MEDS: PANTOPRAZOLE SODIUM TAB 40 MG PO SCH (11:19)
[2020-03-27] MEDS: DICYCLOMINE HCL 20 MG TAB PO SCH ×2 (11:19→20:36)
[2020-03-27] MEDS: OXYBUTYNIN CL 5 MG TAB PO SCH (11:21)
--- NOTE | 2020-03-27 11:25 | US ---
EXAM DESCRIPTION: Abdomen,Complete: Ultrasound. CLINICAL HISTORY: 64 years Femaleabd pain; gastritis COMPARISON: None Available. TECHNIQUE: Transabdominal scanning: grayscale and Doppler modes. FINDINGS: Gallbladder: Gallbladder contracted even though patient fasting. No sludge or stones. Wall thickness of 4.1 mm may be artifactually increased due to contracted state. No fluid. Nontender with transducer pressure. Common bile duct: 5.6 mm upper normal caliber. Liver: Normal echogenicity with no focal lesions. Long axis right lobe 16.9 cm. Physiologic vascularity in the portal vein measuring 11 mm at the madan hepatis. No duct dilation. Smooth capsule with no ascites. Pancreas: Normal size and echogenicity with no intraluminal stones or sludge.. Abdominal aorta: Normal caliber proximal segment to the distal bifurcation. IVC: visualized; normal caliber. Spleen normal echogenicity; long axis measurement is 9.4 cm. Right kidney: 8.5 cm long axis. 6 mm mid renal cortical thickness and echogenicity greater than the liver. Duplicating collecting system. No echogenic stones or hydronephrosis. Left kidney: 9.3 cm long axis with mid renal cortical thickness 9 mm. Cortical echogenicity greater than the liver. Duplicated collecting system. No echogenic stones or hydronephrosis. IMPRESSION: 1. Gallbladder contracted with wall thickening which may be due to contraction. No echogenic sludge or stones. Nontender with transducer pressure. Upper normal caliber of the common bile duct. 2. Liver with normal echogenicity and borderline enlarged. Physiologic vascularity and otherwise unremarkable. Pancreas negative. Spleen unremarkable. 3. Bilateral kidney small with significantly thinned cortex and increased echogenicity for age, suggesting medical renal disease. Correlate with renal function studies. Electronically signed by: Bob Perrin MD 03/27/2020 11:24 AM CDT
[2020-03-27] MEDS: NON-FORMULARY MEDICATION 1 EA MIS (Doxepin Hcl [Doxepin Hcl] 50 MG) PO SCH (13:14)
[2020-03-27] MEDS ORDERED: ENOXAPARIN SODIUM 40 MG/0.4 ML SYG SUBCU ONE (19:16)
[2020-03-27] MEDS: ENOXAPARIN SODIUM 40 MG/0.4 ML SYG SUBCU SCH (20:36)
[2020-03-27] MEDS ORDERED: SODIUM CHL 0.9% 50ML MIN-BAG+ 50 ML IVPB ONE (22:41)
[2020-03-27] MEDS ORDERED: MEROPENEM 1 GM VIAL IVPB ONE (22:41)
[2020-03-27] MEDS: MEROPENEM 1 GM in SODIUM CHL 0.9% 50ML MIN-BAG+ 50 ML IVPB SCH (22:42)
[2020-03-28] MEDS: levoFLOXacin 500MG IV 500 MG in PREMIX BAG 1 BAG IVPB SCH ×2 (00:10→23:47)
[2020-03-28] MEDS: ONDANSETRON INJ 4 MG/2 ML VIAL IV PRN ×3 (04:14→22:42)
[2020-03-28] MEDS ORDERED: ACETAMINOPHEN IV 1000MG 1,000 MG in PREMIX BOTTLE 1 BOTTLE IVPB ONE (04:23)
[2020-03-28] MEDS ORDERED: ACETAMINOPHEN IV 1000MG 100 ML ONE (04:25)
[2020-03-28] MEDS: metroNIDAZOLE IV PREMIX 500MG 500 MG in PREMIX BAG 1 BAG IVPB SCH (05:31)
[2020-03-28] MEDS ORDERED: SODIUM CHL 0.9% 50ML MIN-BAG+ 50 ML IVPB ONE (05:37)
[2020-03-28] MEDS ORDERED: MEROPENEM 1 GM VIAL IVPB ONE (05:37)
[2020-03-28] MEDS: PANTOPRAZOLE SODIUM TAB 40 MG PO SCH (06:14)
[2020-03-28] MEDS: MEROPENEM 1 GM in SODIUM CHL 0.9% 50ML MIN-BAG+ 50 ML IVPB SCH ×3 (06:14→22:41)
[2020-03-28] MEDS ORDERED: KETOROLAC TROMETHAMINE INJ 30 MG/ML VIAL IV ONE (06:52)
[2020-03-28] MEDS ORDERED: LEVOTHYROXINE SODIUM 0.025 MG TAB ONE (07:38)
[2020-03-28] MEDS ORDERED: CALCIUM CARBONATE-VITAMIN D 500 MG TAB ONE (07:38)
[2020-03-28] MEDS: KCL 20MEQ/D5 1/2NS 1,000 ML IVS PRN ×2 (08:07→17:32)
[2020-03-28] MEDS: CALCIUM CARBONATE-VITAMIN D 500 MG TAB PO SCH (08:08)
[2020-03-28] MEDS: DICYCLOMINE HCL 20 MG TAB PO SCH ×2 (08:08→20:34)
[2020-03-28] MEDS: OXYBUTYNIN CL 5 MG TAB PO SCH (08:08)
[2020-03-28] MEDS: ESCITALOPRAM 10 MG TAB PO SCH (08:08)
[2020-03-28] MEDS: SUCRALFATE 1 GM TAB PO SCH ×2 (08:08→20:34)
[2020-03-28] MEDS: LEVOTHYROXINE SODIUM 0.025 MG TAB PO SCH (08:09)
[2020-03-28] MEDS: SODIUM CHLORIDE 0.9% (FLUSH) 10 ML SYG IV SCH ×2 (08:09→20:34)
[2020-03-28] MEDS: NON-FORMULARY MEDICATION 1 EA MIS (Doxepin Hcl [Doxepin Hcl] 50 MG) PO SCH (08:37)
[2020-03-28] MEDS ORDERED: CALCIUM PO SCH (09:00)
[2020-03-28] MEDS ORDERED: PHOSPHORUS PO SCH (09:00)
[2020-03-28] MEDS ORDERED: [UNRECOGNIZED DRUG - OTHER] PO SCH (09:00)
[2020-03-28] MEDS ORDERED: VITAMI PO SCH (09:00)
--- NOTE | 2020-03-28 13:34 | CONS ---
DATE OF CONSULTATION: 03/28/20 HISTORY OF PRESENT ILLNESS: The patient is a 64-year-old female who was admitted with nausea, vomiting and hypokalemia. She is under the care of a compo caster and undergoing a workup for diarrhea. She has undergone a colonoscopy recently. She was found to have elevated liver function tests and her hepatitis panel is negative. She underwent blood cultures and a urine culture which the final results are pending. She was started on Flagyl and Levaquin and has improved symptomatically. She is now afebrile. Discussion with the patient states that she does not believe she has had trouble eating fatty foods, but does have a problem with gluten, she believes. There is some question as to whether or not she could have a Crohn's disease presentation, but this has not been diagnosed. There is no history of hepatitis or jaundice. PAST MEDICAL HISTORY: 1. Diarrhea. 2. 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 3. Peripheral neuropathy. 4. Hypothyroidism. 5. Depression. 6. Bipolar. 7. Chronic urinary tract infections. PAST SURGICAL HISTORY: 1. Tubal ligation. 2. 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 3. Right knee surgery as a child. MEDICATIONS: 1. Oxycodone. 2. Sucralfate. 3. Oxybutynin. 4. Macrobid. 5. Levothyroxine. 6. Esomeprazole. 7. Nexium. 8. Lexapro. 9. Doxepin. 10. Bentyl. 11. Citracal. 12. Acyclovir. ALLERGIES: PENICILLIN, SULFA ANTIBIOTICS. FAMILY HISTORY: Positive for diabetes, depression, hypertension. She has a sister with multiple sclerosis. SOCIAL HISTORY: The patient is and lives in [place] with her sister. 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 She is vaping currently, but did smoke. There is no history of alcohol abuse or drug use. REVIEW OF SYSTEMS: Unremarkable except as noted in history of present illness. She denies headaches, sore throat, upper respiratory infection symptoms. She denies fever, chills, shortness of breath, wheezing, chest pain. She does have chronic back pain. No seizures or dizziness. Denies bruising. PHYSICAL EXAMINATION: GENERAL: The patient is awake, alert, cooperative, in no acute distress. VITAL SIGNS: The patient is currently afebrile, normotensive. HEENT: Sclerae nonicteric. Mucous membranes moist. NECK: Without adenopathy. BACK: Without CVA tenderness. CHEST: Equal breath sounds bilaterally. HEART: Regular rate and rhythm. ABDOMEN: Soft. There is mild tenderness in the right upper quadrant. There is no guarding or rebound noted. PELVIC/RECTAL: Deferred. EXTREMITIES: Without cyanosis, clubbing or edema. LABORATORY: Negative hepatitis panel. White count down to 10,000 from 15,000 on admission. Early yesterday morning, her hemoglobin was 12.9 down from 14. Platelet count 302,000, 85% neutrophils, up from 70% earlier. Chemistries show potassium has come up to 4.1 from 2.6. Creatinine 0.81, calcium 8.2, total bilirubin up to 1.5, AST and ALT elevated from 1000 and 900 on admission to 3300 and 2400. Alkaline phosphatase normal. CK and troponins normal. TSH 3.15. Amylase and lipase normal on admission. She has undergone CT scan of the abdomen which revealed no calcified stones, no dilation, no thrombosis in the liver. There is somewhat decreased density. Ultrasound revealed a contracted gallbladder with wall thickness of 4.1 mm. No sludge or stones were noted. The common bile duct was 5.6 mm. There were no focal lesions in the liver with normal vascularity. No ductal dilation and a smooth capsule. No ascites noted. ASSESSMENT: 1. Chronic diarrhea. 2. Right upper quadrant pain. 3. Leukocytosis, which is resolving. 4. Elevated liver function tests, which are increasing. PLAN: I will make the patient NPO and repeat an ultrasound in the morning along with repeat liver function tests and CBC. Otherwise, I will follow this patient with you. [facility][id number] [facility]
--- NOTE | 2020-03-28 13:48 | PN ---
SUPERVISING PHYSICIAN: Georgi Borrego MD DATE: 03/28/20 SUBJECTIVE: The patient had a fairly busy night overnight with a headache, but did resolve with some Toradol. Her liver enzymes on her lab this morning did show increase from admission, but she still is without any abdominal pain. She has had some nausea, but no vomiting. She has been afebrile. She did show a positive blood culture last night so was started on meropenem based on previous history of multiple urinary tract infections and an E. coli that was noted to be multi-drug resistant. OBJECTIVE: VITAL SIGNS: Temperature 99.1, pulse 86, blood pressure 135/72, respirations 18, saturation 94% on room air. GENERAL: This morning, the patient is resting comfortably. She notes her headache was resolved with Toradol. She is alert. CHEST: Lungs are clear to auscultation bilaterally. HEART: Regular rate and rhythm. ABDOMEN: Soft, nontender. Positive bowel sounds. EXTREMITIES: No cyanosis, clubbing or edema. NEUROLOGIC: Alert and oriented times three. LABORATORY: White count normalized to 10,000, hemoglobin stable at 12.9 and hematocrit 39.7, platelet count 302,000. Differential does show a left shift. Chemistries show a normal potassium and sodium. Chloride still remains elevated at 112. BUN is within normal limits at 13, creatinine 0.81. Anion gap remains low at 10 with carbon dioxide of 19 which is improved from admission of 14. Liver enzymes did show a significant increase overnight with total bilirubin 1.5, AST up to 3336 and ALT 2469. MICROBIOLOGY: Blood cultures remain negative except for one positive aerobic bottle that showed a gram variable hang. Wound cultures pending. Hepatitis A, B and C were negative. Please see report for details. RADIOLOGY: No additional radiographic studies. ASSESSMENT: 1. Acute gastroenteritis, etiology still uncertain, although showing the patient to be resolving with current treatment with patient having a history of irritable bowel syndrome versus nonspecific inflammatory bowel disease, being followed by GI specialist. 2. Nausea and vomiting associated with #1, now resolved. 3. Chronic pain management from peripheral neuropathies on oxycodone. 4. Gram negative hang bacteremia, etiology uncertain, possibly related to ongoing urinary tract infection with cultures pending. 5. Urinary tract infection on Macrodantin prior to admission, cultures pending, with the patient on Levaquin and meropenem now. 6. Metabolic acidosis secondary to #2, resolving with fluids. 7. Mild dehydration secondary to #2, resolving. 8. Elevated transaminases, etiology uncertain, with the patient being followed by GI specialist, Dr. Gilliland, with hepatitis panel negative for A, B and C with the patient currently asymptomatic with last liver ultrasound showing moderate hepatosteatosis. 9. History of hypothyroidism on supplementation. 10. History of depression and bipolar disorder. PLAN: We will continue current plan of care with modification of antibiotics given that she does have a gram negative hang per blood culture and put her on meropenem based on previous culture results with multi-drug resistant E. coli. I did stop her Flagyl with orders to give no more Tylenol. I have requested Dr. Taylor to review the patient's imaging studies and consult as necessary. The patient is not symptomatic in regards to any pain and clinically on labs is showing improvement in her CBC and she remains afebrile. We will advance her diet to a full liquid diet today and then advance as tolerated from there. I would anticipate we will discharge as soon as we get preliminary result of blood cultures. Until then, we will continue to monitor and treat as needed. [facility][id number] [facility]
[2020-03-28] MEDS: ENOXAPARIN SODIUM 40 MG/0.4 ML SYG SUBCU SCH (20:34)
[2020-03-29] MEDS: KETOROLAC TROMETHAMINE INJ 30 MG/ML VIAL IV SCH ×2 (00:10→05:52)
[2020-03-29] MEDS: KCL 20MEQ/D5 1/2NS 1,000 ML IVS PRN (03:38)
[2020-03-29] MEDS: MEROPENEM 1 GM in SODIUM CHL 0.9% 50ML MIN-BAG+ 50 ML IVPB SCH (05:52)
[2020-03-29] MEDS: PANTOPRAZOLE SODIUM TAB 40 MG PO SCH (05:53)
[2020-03-29 09:54] VITALS: BP 99/54; TEMP 98.5; O2SAT 91
[2020-03-29] MEDS: ESCITALOPRAM 10 MG TAB PO SCH (10:52)
[2020-03-29] MEDS: NON-FORMULARY MEDICATION 1 EA MIS (Doxepin Hcl [Doxepin Hcl] 50 MG) PO SCH (10:52)
[2020-03-29] MEDS: SUCRALFATE 1 GM TAB PO SCH (10:52)
[2020-03-29] MEDS: DICYCLOMINE HCL 20 MG TAB PO SCH (10:52)
[2020-03-29] MEDS: OXYBUTYNIN CL 5 MG TAB PO SCH (10:52)
[2020-03-29] MEDS: CALCIUM CARBONATE-VITAMIN D 500 MG TAB PO SCH (10:53)
[2020-03-29] MEDS: LEVOTHYROXINE SODIUM 0.025 MG TAB PO SCH (10:53)
[2020-03-29] MEDS: SODIUM CHLORIDE 0.9% (FLUSH) 10 ML SYG IV SCH (10:53)
--- NOTE | 2020-03-29 11:13 | US ---
EXAM DESCRIPTION: Abdomen,Limited: ULTRASOUND. CLINICAL HISTORY: elevated LFTs COMPARISON: Ultrasound abdomen March [address] abdomen. TECHNIQUE: Transabdominal scanning: reddy-scale mode. Doppler mode. FINDINGS: Gallbladder: Contracted. Minimal sludge. fluid gallbladder tesfaye Marked wall thickening 7.5 mm tender with transducer pressure.. This represents unfavorable interval change since the prior study. Common bile duct: caliber 9.2 mm markedly dilated and enlarged since the prior study.. Liver, pancreas, abdominal aorta, and right kidney are stable since the prior study. IMPRESSION: Gallbladder with thickened wall and sludge in fluid in the wall. Tender with transducer pressure. Consistent with cholecystitis, progressed since the prior study. Progressive dilation of the common bile duct. Surgical consult is recommended. Electronically signed by: Bob Perrin MD 03/29/2020 11:12 AM CDT
[2020-03-29] MEDS: ONDANSETRON INJ 4 MG/2 ML VIAL IV PRN (11:20)
--- NOTE | 2020-04-02 14:10 | DS ---
SUPERVISING PHYSICIAN: Georgi Borrego MD ADMISSION DIAGNOSIS: 1. Acute gastroenteritis, etiology uncertain with patient having a history of irritable bowel syndrome versus nonspecific inflammatory bowel. 2. Nausea and vomiting associated with #1. 3. Chronic pain management from peripheral neuropathies on oxycodone. 4. Urinary tract infection on Macrodantin prior to admission. 5. Electrolyte imbalance to include a hypokalemia and hypomagnesemia. 6. Metabolic acidosis secondary to #2. 7. Mild dehydration secondary to #2. 8. Elevated transaminase, etiology uncertain, followed by GI specialist, Dr. Gilliland, with hepatitis panel pending. 9. History of hypothyroidism on supplementation. 10. History of depression and bipolar disorder. DISCHARGE DIAGNOSIS: 1. Acute gastroenteritis, etiology uncertain, needs referral to GI specialist not available in [place]. 2. Nausea and vomiting associated with #1, resolved. 3. Gram negative hang bacteremia, etiology uncertain, likely due to underlying urinary tract infection with cultures pending at time of transfer. 4. Urinary tract infection previously on Macrobid with cultures pending with the patient transferred on Levaquin and meropenem. 5. Metabolic acidosis secondary to #2, resolved with fluids. 6. Elevated transaminases, etiology uncertain, with hepatitis panel negative with concerns for possible acute cholecystitis, needing further consultation with no surgical services available at time of transfer. 7. Chronic pain management for peripheral neuropathy on chronic oxycodone. 8. Hypothyroidism on supplementation. 9. History of depression and anxiety disorder. REASON FOR HOSPITALIZATION: Ms. Maya is a 64 year-old female patient who presented to the Emergency Room for her second visit within the last 24 hours due to persistent nausea and vomiting with associated diarrhea. She had been seen earlier in the Emergency Room and it was felt at that time the patient was having mild opioid withdrawals as she had run out of her Oxycodone approximately 48 hours previously. At that visit, she was started on a Fentanyl patch and noticed her symptoms returned with copious amounts of diarrhea. She does have a history of chronic diarrhea and has been worked up in the past. Within the last month she had a scope done for her GI issues. The scope was done by Dr. Gilliland last week and at that time she was started on a mild laxative. She did endorse she had finished her last laxative 24 hours prior to the initial start of these current symptoms. She has not been formally diagnosed Crohn's OR any specific medical diagnosis other than questionable Crohn's-like illness versus irritable bowel syndrome. She is taking Doxepin and did run out of that 2 days previous as well. She is not currently on any steroids or any treatments for any inflammatory disease. She had stool cultures as well as C-diff which were all done about a month previous and all were negative. On this visit to the Emergency Room, her workup did show she had a leukocytosis of 15,200 without a left shift but she had a potassium of 2.6 with anion gap of 18.6 and C02 of 14. She also has elevated liver functions in the form of AST, ALT but this per history is chronic and she has not been diagnosed with any hepatitis acutely. On her initial visit to the Emergency Room on March 26, she was also found to have a urinary tract infection and was started on Macrobid. CT of her abdomen with contrast per radiology interpretation showed findings compatible with mild nonspecific enteritis. On that same CT was noted hepatic steatosis. She was given a K rider in the Emergency Room and started on antibiotics including Levaquin and Flagyl. Given the number of times in the Emergency Room with persistent and worsening nausea, vomiting, diarrhea, the patient is going to be admitted for treatment of acute gastroenteritis and correction of her hypokalemia. She was also noted to be mildly metabolic acidotic on labs. She is admitted in stable condition. CONSULTATIONS: General surgeon, Dr. Taylor. Please see his medical consultation notes. LABORATORY: White count on discharge was 11,100, which was improved from admission of 15,200. She did have a left shift. Chemistries showed stable electrolytes, but her AST was elevated to 4668 and ALT to 5608. TSH normal. Bilirubin was elevated at 1.7. Hepatitis A, B and C panel negative. MICROBIOLOGY: She did have a blood culture that was positive growing gram negative hang with culture pending at time of transfer. RADIOLOGY: Initially, she had an abdominal x-ray in the ER and per radiologic interpretation showed no bowel obstruction. This was followed up with a CT of the abdomen and pelvis and per radiologic interpretation showed findings compatible with mild nonspecific enteritis. There was note a 6 mm peripheral calcified structure arising from the right renal artery. There was nonobstructing bilateral nephrolithiasis and hepatic steatosis. She then had an ultrasound of the abdomen on 03/27/[address] Taylor and per radiologic interpretation at that time showed gallbladder contracted with wall thickening which may be due to contraction. No echogenic sludge or stones. Nontender to transducer pressure, but upper normal caliber of the common bile duct. There was echogenicity and borderline enlarged. Pancreas negative. Spleen unremarkable. Please see that report for details. On date of discharge before transfer, additional ultrasound was completed and per radiologic interpretation there was note of gallbladder with thickened wall and sludge and fluid in the wall. Tender with transducer pressure and consistent with cholecystitis, which had progressed from previous study with progressive dilation of the common bile duct. Surgical consultation was recommended. Dr. Taylor was consulted. HOSPITAL COURSE: Ms. Maya was admitted initially for what seemed to be just nonspecific gastroenteritis. While in the hospital, she was stable but did have a blood culture that was positive and she was treated for urinary tract infection with gram negative hang. She was started on antibiotics initially with Levaquin and Flagyl and then changed to meropenem and Levaquin with the Flagyl dropped once she had elevation on her liver enzymes. She did get one single dose of Tylenol for fever, but that was stopped and she was treated with Motrin and Toradol for additional coverage for fever and pain. She was seen in consultation by Dr. Taylor and was stable but with concerns for developing acute cholecystitis and no surgery crew available at time of transfer and with elevating transaminases, I was able to consult with Dr. Gilliland, her GI specialist and after discussing the case with Dr. Taylor, he recommended she be transferred for further evaluation to [facility]. DISCHARGE ASSESSMENT: VITAL SIGNS: Stable with temperature 98.5, pulse 79, blood pressure 99/54, respirations 18, saturation 91 to 94% on room air. GENERAL: The patient was resting comfortably, did not appear to be in any acute distress. CHEST: Clear to auscultation bilaterally. HEART: Regular rate and rhythm. ABDOMEN: Soft with some tenderness in the upper right quadrant. No rebound tenderness, no peritoneal signs. EXTREMITIES: No edema. NEUROLOGIC: She is alert and oriented x3. PLAN: Ms. Maya was transferred for higher level of care at [facility] per Dr. Gilliland and hospital for services not available in [place]. She did have signs of acute cholecystitis with worsening liver function, therefore, more likely will need surgical intervention based on radiographic findings and there was concern the liver enzymes were also elevating at that point. She was transferred by ground via ambulance and was stable. Medical records and imaging studies were sent at time of transfer. DISPOSITION: The patient was transferred to [facility] via ground ambulance. CONDITION ON DISCHARGE: Stable, but guarded. [facility][id number] [facility]
== END 2020-03-29 12:57 | disposition short-term general hospital (02) | DRG 641 ==
LOC: ER 23:58 → MS 03-27 02:30 → OBSVTOIN 03-27 02:30
PROVIDERS: ADMIT Nurse Practitioner Acute Care; ATTEND Nurse Practitioner Family
PROC: BW211ZZ Computerized Tomography (CT Scan) of Abdomen and Pelvis using Low Osmolar Contrast (ICD-10-PCS; principal; 2020-03-27)
DX: E87.6 Hypokalemia (principal); N39.0 Urinary tract infection, site not specified; R78.81 Bacteremia; K80.00 Calculus of gallbladder with acute cholecystitis without obstruction; E87.2 Acidosis; K52.9 Noninfective gastroenteritis and colitis, unspecified; E83.42 Hypomagnesemia; E86.0 Dehydration; R74.0 Nonspecific elevation of levels of transaminase and lactic acid dehydrogenase [LDH]; K76.0 Fatty (change of) liver, not elsewhere classified; G89.29 Other chronic pain; G62.9 Polyneuropathy, unspecified; E03.9 Hypothyroidism, unspecified; F31.9 Bipolar disorder, unspecified; F41.9 Anxiety disorder, unspecified; F17.290 Nicotine dependence, other tobacco product, uncomplicated; Z88.2 Allergy status to sulfonamides; Z88.0 Allergy status to penicillin; Z79.891 Long term (current) use of opiate analgesic; Z79.899 Other long term (current) drug therapy; R51 Headache

== ENCOUNTER 2020-04-11 13:43 | Emergency (ER) | payer BC ==
[2020-04-11] MEDS ORDERED: diazePAM INJ 10 MG/2 ML SYG IV ONE (14:08)
[2020-04-11] MEDS ORDERED: fentaNYL CITRATE INJ 50 MCG/ML AMP IV ONE (14:08)
--- NOTE | 2020-04-11 14:35 | RAD ---
EXAM DESCRIPTION: Knee,Right Complete CLINICAL HISTORY: 64 years Female, pain s/p fall. TECHNIQUE: 3 views of the right knee were performed. COMPARISON: None available. FINDINGS: The visualized bones appear well mineralized. No acute fracture or dislocation. Mild tricompartmental osteoarthritis. Chondrocalcinosis. Small joint effusion. The soft tissues appear grossly unremarkable. IMPRESSION: Mild tricompartmental osteoarthritis. Chondrocalcinosis. Small joint effusion. Electronically signed by: Linda Manning MD 04/11/2020 2:34 PM CDT
[2020-04-11] MEDS ORDERED: ACETAMINOPHEN 500 MG TAB PO ONE (14:44)
[2020-04-11] MEDS ORDERED: KETOROLAC TROMETHAMINE INJ 30 MG/ML VIAL IV ONE (15:08)
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
--- NOTE | 2020-04-11 17:00 | CT ---
EXAM: CT Head and Cervical Spine Without Intravenous Contrast CLINICAL HISTORY: headache/neck pain and fever. TECHNIQUE: Axial computed tomography images of the head/brain and cervical spine without intravenous contrast. Sagittal and coronal reformatted images were created and reviewed. This CT exam was performed using one or more of the following dose reduction techniques: automated exposure control, adjustment of the mA and/or kV according to patient size, and/or use of iterative reconstruction technique. COMPARISON: No relevant prior studies available. FINDINGS: Brain: Unremarkable. No hemorrhage. No significant white matter disease. No edema. Ventricles: Unremarkable. No ventriculomegaly. Skull: No acute fracture. Sinuses: Unremarkable as visualized. No acute sinusitis. Mastoid air cells: Unremarkable as visualized. No mastoid effusion. Vertebrae: There is multilevel facet hypertrophic change and mild spondylosis. Spondylosis is more prominent at C5-C6. No acute fracture. Normal alignment. Discs/spinal canal/neural foramina: No acute findings. No spinal canal stenosis. Soft tissues: Unremarkable. IMPRESSION: 1. No acute change in the brain. 2. Chronic changes in the cervical spine without acute disease. Electronically signed by: Evelyn Donato MD 04/11/2020 4:59 PM CDT
[2020-04-11 20:30] VITALS: BP 118/66; TEMP 101; O2SAT 100
== END 2020-04-11 20:22 | disposition short-term general hospital (02) ==
LOC: ER 13:43
DX: R50.9 Fever, unspecified (principal); R51 Headache; M54.2 Cervicalgia; M25.561 Pain in right knee; M11.261 Other chondrocalcinosis, right knee; M17.11 Unilateral primary osteoarthritis, right knee; E03.9 Hypothyroidism, unspecified; K21.9 Gastro-esophageal reflux disease without esophagitis; Z86.61 Personal history of infections of the central nervous system; Z87.891 Personal history of nicotine dependence; Z79.899 Other long term (current) drug therapy; Z88.0 Allergy status to penicillin; Z88.2 Allergy status to sulfonamides; Z88.8 Allergy status to other drugs, medicaments and biological substances
CPT/HCPCS: 36415; 70450; 72125; 73562; 80053; 83605; 83690; 85025; 87040; J1885; J3010; J3360

== ENCOUNTER 2020-05-08 00:29 | Emergency (ER) | payer BC ==
[2020-05-08] MEDS ORDERED: KETOROLAC TROMETHAMINE INJ 60 MG/2 ML VIAL IM ONE (01:47)
[2020-05-08] MEDS ORDERED: methylPREDNISolone ACETATE 80 MG/ML VIAL IM ONE (01:47)
--- NOTE | 2020-05-08 01:48 | ED.PDOC ---
History of Present Illness - General Chief Complaint: Back Pain or Injury Stated Complaint: LBP Time Seen by Provider: 05/08/20 00:48 Source: patient Exam Limitations: no limitations - History of Present Illness Initial Comments: CHRONIC LBP, UNCHANGED FROM BASELINE. PT SEES DR. ADAME FOR PAIN MGMT FOR CHRONIC LBP. SHE RAN OUT OF HER NARCOTICS YESTERDAY AND GO A NEW RX BUT INSURANCE DOESN'T PAY FOR THE REFILL UNTIL WEDNESDAY (TOMORROW). Quality/Severity: moderate Back Pain Location: lumbar spine Back Pain Radiation: lower legs Method of Injury/Prior Injury: other - NO RECENT TRAUMA. Improving Factors: nothing Worsening Factors: nothing Associated Symptoms: denies symptoms Allergies/Adverse Reactions: Allergies Penicillins Allergy (Verified 04/11/20 14:14) Sulfa Antibiotics Allergy (Verified 04/11/20 14:14) Trazodone Allergy (Verified 04/11/20 14:14) Home Medications: Ambulatory Orders Escitalopram [Lexapro] 20 mg PO BID 05/03/19 Sucralfate 1 gm PO BID 05/03/19 Acyclovir [Zovirax] 400 mg PO PRN 03/26/20 Calcium & Phosphorus W/ Vitami [Citracal+D3 250-107-500 mg-mg-Unit] 3 chw PO DAILY 03/26/20 Dicyclomine HCl [Bentyl] 20 mg PO BID 03/26/20 Esomeprazole Magnesium 40 mg PO DAILY 03/26/20 Levothyroxine Sodium [Euthyrox] 25 mcg PO DAILY 03/26/20 Oxybutynin Chloride [Oxybutynin Chloride ER] 5 mg PO DAILY 03/26/20 Oxycodone HCl [Roxicodone] 15 mg PO Q6H 03/26/20 Magnesium [Magnesium 250 mg] 1 tab PO DAILY 04/11/20 Methylcellulose (Laxative) [Citrucel] 500 mg PO TID 04/11/20 Nitrofurantoin Monohydrate Mac [Macrobid] 100 mg PO DAILY 04/11/20 Potassium 99 mg PO DAILY 04/11/20 Review of Systems - Review of Systems Constitutional: States: no symptoms reported. Denies: chills, fever EENTM: States: no symptoms reported Respiratory: States: no symptoms reported Cardiology: States: no symptoms reported Gastrointestinal/Abdominal: States: no symptoms reported Genitourinary: States: no symptoms reported Musculoskeletal: States: see HPI, back pain. Denies: neck pain Skin: States: no symptoms reported Neurological: States: other - CHRONIC BLLE NEUROPATHY Endocrine: States: no symptoms reported Hematologic/Lymphatic: States: no symptoms reported All other Systems: Reviewed and Negative Past Medical History (General) - Patient Medical History Hx Seizures: No Hx Stroke: No Hx Dementia: No Hx Asthma: No Hx of COPD: No Hx Cardiac Disorders: No Hx Congestive Heart Failure: No Hx Pacemaker: No Hx Hypertension: No Hx Thyroid Disease: Yes Hx Diabetes: No Hx Gastroesophageal Reflux: Yes Hx Renal Disease: No Hx Cancer: No Hx of HIV: No Hx Hepatitis C: No Hx MRSA: No Surgical History: no surgical history - Vaccination History Hx Tetanus, Diphtheria Vaccination: No Hx Influenza Vaccination: No Hx Pneumococcal Vaccination: No - Social History Hx Tobacco Use: No Hx Chewing Tobacco Use: No Hx Alcohol Use: No Hx Substance Use: No Hx Substance Use Treatment: No Hx Depression: No Feels Threatened In Home Enviroment: No Feels Threatened In a Relationship: No Hx Physical Abuse: No Hx Emotional Abuse: No Hx Suspected Abuse: No - Female History Patient is a Female of Child Bearing Age (10 -59 yrs old): No Patient : No Family Medical History - Family History Mother Family History: Unknown Living Status: Unknown Hx Family Cancer: Yes Father Living Status: Unknown Hx Family Cancer: Yes - and brother Physical Exam - Physical Exam General Appearance: Alert, No apparent distress Eyes, Ears, Nose, Throat Exam: PERRL/EOMI, normal ENT inspection Neck Exam: full range of motion, normal inspection Cardiovascular/Respiratory: regular rate, rhythm, no M/R/G Peripheral Pulses: dorsalis pedis,right: 2+, dorsalis pedis,left: 2+, posterior tibialis,right: 2+, posterior tibialis,left: 2+ Gastrointestinal/Abdominal: non tender, soft Back Exam: normal inspection, vertebral tenderness - CHRONIC, UNCHANGED FROM BASELINE PER PT. , other - POS BL STRAIGHT LEG RAISE. POS BL SUJATA/FADIR. Extremity Exam: no evidence of injury, normal range of motion, no pedal edema Neurologic: no motor/sensory deficits, normal mood/affect Skin Exam: normal color, warm/dry Progress - Results/Orders Results/Orders: I EXPLAINED TO PT I CAN GIVE (NON-NARCOTIC) SHOTS TO HELP HER PAIN BUT CANNOT RX NARCOTICS, IT WOULD VIOLATE HER PAIN CONTRACT WITH DR. ADAME. I ALSO EXPLAINED SHE CAN FILL PART OF HER RX A COUPLE DAYS EARLY IF NEEDED BY PAYING CAPPS, USING [facility], FOR EXAMPLE, AND THEN FILLING THE REST WITH INSURANCE. Departure - Departure Clinical Impression: Chronic radicular low back pain Chronic lumbar pain Qualifiers: Back pain laterality: bilateral Sciatica presence: with sciatica Sciatica laterality: bilateral sciatica Qualified Code(s): M54.42 - Lumbago with sciatica, left side Disposition: Discharge to Home or Self Care Condition: Good Departure Forms: ED Discharge - Pt. Copy, Patient Portal Self Enrollment Instructions: DI for Low Back Pain, Back Precautions Diet: resume usual diet Activity: increase activity as tolerated Referrals: Suzi Concepcion FNP [Primary Care Provider] - 1-2 Weeks Home Medications: Ambulatory Orders Escitalopram [Lexapro] 20 mg PO BID 05/03/19 Sucralfate 1 gm PO BID 05/03/19 Acyclovir [Zovirax] 400 mg PO PRN 03/26/20 Calcium & Phosphorus W/ Vitami [Citracal+D3 250-107-500 mg-mg-Unit] 3 chw PO DAILY 03/26/20 Dicyclomine HCl [Bentyl] 20 mg PO BID 03/26/20 Esomeprazole Magnesium 40 mg PO DAILY 03/26/20 Levothyroxine Sodium [Euthyrox] 25 mcg PO DAILY 03/26/20 Oxybutynin Chloride [Oxybutynin Chloride ER] 5 mg PO DAILY 03/26/20 Oxycodone HCl [Roxicodone] 15 mg PO Q6H 03/26/20 Magnesium [Magnesium 250 mg] 1 tab PO DAILY 04/11/20 Methylcellulose (Laxative) [Citrucel] 500 mg PO TID 04/11/20 Nitrofurantoin Monohydrate Mac [Macrobid] 100 mg PO DAILY 04/11/20 Potassium 99 mg PO DAILY 04/11/20 Additional Instructions: Please follow-up with Dr. Adame, as scheduled.
[2020-05-08 04:58] VITALS: BP 158/88; TEMP 97.9; O2SAT 96
== END 2020-05-08 02:00 | disposition home or self-care (01) ==
LOC: ER 00:29
DX: M54.42 Lumbago with sciatica, left side (principal); G89.29 Other chronic pain
CPT/HCPCS: J1030; J1885

== ENCOUNTER → 2020-06-13 | Outpatient (CLI) | payer BC | LOC: YCFC.O 12:00 | PROVIDERS: ATTEND Nurse Practitioner | DX: N39.0 Urinary tract infection, site not specified (principal) ==

== ENCOUNTER 2020-07-04 13:07 | Inpatient (IN) | payer BC ==
--- NOTE | 2020-07-04 13:09 | HP ---
SUPERVISING PHYSICIAN: VERN VEGAS MD CHIEF COMPLAINT: Urinary tract infection. HISTORY OF PRESENT ILLNESS: This is a 64 year-old female patient who has an extensive history of urinary tract infections. She had gone to [facility] and saw the Nurse Practitioner there several weeks ago for recurring urinary tract infection. The TRANSPORTATION AGENT set her up with a urologist and prior to sending her to the urologist she put her on Macrobid. The patient saw the urologist, a urine culture was done and the patient was placed on Cipro. She finished her Cipro prescription yesterday and her urinalysis came back with a drug-resistant Klebsiella. It is resistant to all p.o. medication. She was sent to the hospital for a direct admission. Her initial vital signs were temperature of 96.7 with heart rate of 86, blood pressure 112/77, respiratory rate of 16, oxygen saturation of 92% on room air. Lab was done and she had a WBC of 7.4 with hemoglobin of 12.2, hematocrit 36.6. ESR was 25. Chemistries were unremarkable except for her potassium was low at 3.4 and her magnesium was low at 1.7. C-reactive protein was high at 1.2. TSH was 3.13. Urinalysis was unremarkable. Urine culture and sensitivity is on the chart. Blood cultures were drawn and urine culture is pending. Chest x-ray showed no acute process identified in the chest. CT of the abdomen and pelvis showed a large amount of fecal material in the colon consistent with constipation and tiny obstructing calculi in the kidneys, sacral lucency probably large Tarlov cyst. She was started on meropenem and a PICC line was ordered. She was placed in observation in the hospital. PAST MEDICAL HISTORY: 1. Chronic back pain. [place] 2. Hypothyroidism. 3. Bipolar depression. 4. Chronic urinary tract infections. 5. Osteomyelitis of the jaw. 6. Meningitis x2. PAST SURGICAL HISTORY: 1. Tubal ligation. 2. Multiple jaw surgeries due to the osteomyelitis. 3. Right knee surgery as a child. CURRENT MEDICATIONS: Per the EMR. ALLERGIES: PENICILLIN, SULFA, TRAZODONE. FAMILY HISTORY: Positive for hypertension, depression and diabetes. SOCIAL HISTORY: The patient lives with her sister in [place], [place]. She is . She has 3 children. 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 She quit smoking several years ago but she continues to vape and she drinks alcohol on a social basis. She denies any illicit drug use. REVIEW OF SYSTEMS: GENERAL: Negative for fever, fatigue, weight changes. HEENT: Degenerative for sinus symptoms, ear pain, vision changes, sore throat. CHEST: Negative for shortness of breath, wheezing or coughing. HEART: Negative for chest pain, palpitations, tachycardia. ABDOMEN: Negative for nausea, vomiting, diarrhea or constipation. GENITOURINARY: Positive for frequent urinary tract infections, negative for hematuria, dysuria or polyuria. MUSCULOSKELETAL: Positive for chronic back pain. Negative for arthralgias, myalgias. SKIN: Negative for lesions or rashes. NEUROLOGIC: Negative for headaches, weakness, seizures. PHYSICAL EXAMINATION: VITAL SIGNS: Temperature 97.9, heart rate 80, blood pressure 106/69, respirations 16, oxygen saturation 97%. GENERAL: This is a 64 year-old female patient lying in her hospital bed. She is in no acute distress. HEENT: Normocephalic and atraumatic. Pupils are equal and reactive. Oropharynx is clear. . NECK: Supple without mass. CHEST: Essentially clear to auscultation bilaterally. Chest has equal rise and fall with inspiration and expiration. CARDIOVASCULAR: Regular rate and rhythm. ABDOMEN: Soft, non-tender, nondistended. Bowel sounds are positive.. EXTREMITIES: No cyanosis, clubbing, or edema. NEUROLOGIC: Cranial nerves II through XII are grossly intact as tested. She is awake, alert and oriented x3. SKIN: Warm and dry. IMPRESSION: 1. Acute on chronic multi-drug resistant urinary tract infection. Her culture shows positive for Klebsiella. 2. History of meningitis. 3. Constipation. 4. Chronic back pain presently on pain management per Dr. Adame in [place]. 5. Hypothyroidism. 6. Bipolar depression. PLAN: The patient has been placed in observation. She will have Meropenem. I have also ordered a PICC line to be placed as she will have to have outpatient IV antibiotics. Her home medications will be restarted as soon as thy are verified. I will give her a dose of milk of Invieo. I will need to contact Infectious Disease tomorrow to see the recommended length of treatment for her IV antibiotics. She will be on Lovenox for DVT prophylaxis and a PPI for ulcer prophylaxis. Routine labs will be drawn in the morning and hopefully she can be discharged tomorrow or the next day with close followup with the TRANSPORTATION AGENT at [facility] and her urologist. #[id number] G[facility]ELA
[2020-07-04] MEDS ORDERED: SODIUM CHLORIDE 0.9% (FLUSH) 10 ML SYG IV PRN (13:47)
[2020-07-04] MEDS: IV SET AND CAP CHANGE INJ INJ SCH (14:19)
--- NOTE | 2020-07-04 15:40 | RAD ---
EXAM DESCRIPTION: Chest,1 View CLINICAL HISTORY: 64 years Female, admit COMPARISON: Previous study May 03, 2019 TECHNIQUE: AP portable chest. FINDINGS: Heart size is normal with normal pulmonary vascularity. No consolidating infiltrate. No pulmonary mass or worrisome nodule. No pneumothorax or pleural effusion. Bones are unremarkable. IMPRESSION: No acute process is identified in the chest. Electronically signed by: Arnol Odonnell MD 07/04/2020 3:39 PM CDT
--- NOTE | 2020-07-04 15:50 | CT ---
EXAM DESCRIPTION: CT ABDOMEN AND PELVIS WITHOUT AND WITH CONTRAST CLINICAL HISTORY: drug resistant uti r/o pyelo COMPARISON: Ultrasound abdomen March 29, 2020, CT abdomen and pelvis March 27, 2020 TECHNIQUE: CT of the abdomen and pelvis are performed prior to and during IV bolus administration of 100 mL of Isovue 300. Oral contrast media is administered as well. FINDINGS: CT abdomen The lung bases are clear of infiltrate. Liver is normal in size and parenchymal appearance on the precontrast images. Tiny nonobstructing bilateral renal calculi. Spleen, pancreas, and kidneys are otherwise unremarkable. There is no lymphadenopathy, inflammation, or free fluid observed. Large amount of fecal material throughout the colon consistent with constipation. No obstructing rectal or colonic mass. Postcontrast images show normal enhancement of the liver, spleen, pancreas and kidneys. Normal enhancement of upper abdominal vessels. No aortic aneurysm. Delayed postcontrast images show normal contrast accumulation in the urinary collecting systems. No filling defects in the renal pelves or ureters or bladder. No inflammation around the kidneys or perfusion defects of the renal parenchyma to suggest active pyelonephritis. CT pelvis No inflammation is seen around the cecum or terminal ileum or sigmoid colon. Appendix is normal in appearance. No stones are seen in the distal ureters or bladder. Normal pelvic small bowel loops. No fracture or lytic lesion of the osseous structures. Large Tarlov cysts in the sacrum incidentally noted with appearance unchanged compared to the previous study. Postcontrast images show normal enhancement of the pelvic vessels. Uterus and ovaries appear normal for age other than right-sided calcification in the uterus consistent with degenerated fibroid. Coronal and sagittal reformatted images confirm the findings. IMPRESSION: Large amount of fecal material in the colon consistent with constipation. Tiny nonobstructing calculi in the kidneys. Sacral lucency probably large Tarlov cysts. This exam was performed according to our departmental dose-optimization program, which includes automated exposure control, adjustment of the mA and/or kV according to patient size and/or use of iterative reconstruction technique. Electronically signed by: Arnol Odonnell MD 07/04/2020 3:48 PM CDT
[2020-07-04] MEDS: MEROPENEM 1 GM in SODIUM CHL 0.9% 50ML MIN-BAG+ 50 ML IVPB SCH (17:31)
[2020-07-04] MEDS ORDERED: MAGNESIUM SULFATE PREMIX 2GM 2 GM in PREMIX BAG 1 BAG IVPB ONE (18:17)
[2020-07-04] MEDS ORDERED: MAGNESIUM SULFATE PREMIX 2GM 50 ML IVPB ONE (18:29)
[2020-07-04] MEDS ORDERED: OXYCODONE HCL 15 MG PO SCH (18:30)
[2020-07-04] MEDS ORDERED: ENOXAPARIN SODIUM 40 MG/0.4 ML SYG SUBCU SCH (21:00)
[2020-07-04] MEDS: SUCRALFATE 1 GM TAB PO SCH (21:41)
[2020-07-04] MEDS: SODIUM CHLORIDE 0.9% (FLUSH) 10 ML SYG IV SCH (21:41)
[2020-07-04] MEDS: DICYCLOMINE HCL 20 MG TAB PO SCH (21:41)
[2020-07-04] MEDS: DOXEPIN HCL 50 MG PO SCH (21:42)
[2020-07-04] MEDS ORDERED: MAGNESIUM HYDROXIDE 30 ML UD PO ONE (22:52)
[2020-07-05] MEDS: MEROPENEM 1 GM in SODIUM CHL 0.9% 50ML MIN-BAG+ 50 ML IVPB SCH ×3 (00:01→17:25)
[2020-07-05] MEDS: OXYCODONE HCL 15 MG PO PRN ×2 (00:43→07:47)
--- NOTE | 2020-07-05 04:36 | RAD ---
EXAM DESCRIPTION: X-ray single view chest. CLINICAL HISTORY: 64 years Female, Verify PICC placement COMPARISON: 07/04/2020 2:19 AM TECHNIQUE: Single portable x-ray view of the chest performed on 07/05/2020 at 3:56 AM FINDINGS: The lungs are well expanded and are clear. There may be minimal atelectasis in the right inferior hemithorax. There is no evidence of a pneumothorax. The cardiac silhouette is normal in size and configuration. The mediastinal contours are normal. No acute osseous abnormality is identified. No focal soft tissue abnormalities are seen. Lines and tubes: The tip of the left upper extremity PICC line catheter overlies the region of the superior vena cava. IMPRESSION: 1. No evidence of acute intrathoracic disease. There is probable minimal right basilar subsegmental atelectasis. 2. The tip of the left upper extremity PICC line catheter overlies the region of the superior vena cava. Electronically signed by: Vee Cullen DO 07/05/2020 4:35 AM CDT
[2020-07-05] MEDS ORDERED: PANTOPRAZOLE SODIUM IV 40 MG VIAL ONE (05:10)
[2020-07-05] MEDS: LEVOTHYROXINE SODIUM 0.025 MG TAB PO SCH ×2 (05:53→08:43)
[2020-07-05] MEDS: PANTOPRAZOLE SODIUM IV 40 MG VIAL IV SCH (05:53)
[2020-07-05] MEDS: ENOXAPARIN SODIUM 40 MG/0.4 ML SYG SUBCU SCH (08:42)
[2020-07-05] MEDS: SODIUM CHLORIDE 0.9% (FLUSH) 10 ML SYG IV SCH ×2 (08:43→20:41)
[2020-07-05] MEDS: SUCRALFATE 1 GM TAB PO SCH ×2 (08:43→17:25)
[2020-07-05] MEDS: DICYCLOMINE HCL 20 MG TAB PO SCH ×2 (08:43→20:39)
[2020-07-05] MEDS: BIFIDOBACTERIUM INFANTIS 4 MG CAP PO SCH (08:53)
[2020-07-05] MEDS: ESCITALOPRAM 10 MG TAB PO SCH (08:53)
--- NOTE | 2020-07-05 14:29 | PN ---
SUPERVISING PHYSICIAN: Bhupinder Mcmanus MD DATE: 07/05/20 SUBJECTIVE: The patient is sitting up in bed. She feels much better. No complaints of nausea or vomiting. She did have a large bowel movement today, but says she has chronic problems with constipation. She also received her PICC line last night. We discussed outpatient IV antibiotic therapy. OBJECTIVE: VITAL SIGNS: Temperature 97.5, heart rate 72, blood pressure 98/62, respiratory rate 16, O2 saturation 91% on room air. RESPIRATORY: Essentially clear to auscultation bilaterally. CARDIAC: Regular rate and rhythm. NEUROLOGIC: Awake, alert and oriented times three. LABORATORY: CBC is unremarkable. CMP is unremarkable. MICROBIOLOGY: Urine culture is still pending. Preliminary blood cultures show no growth. RADIOLOGY: Chest x-ray shows no evidence of acute intrathoracic disease. The tip of the left upper extremity PICC line catheter overlies the region of the superior vena cava. All other labs and films have been reviewed via the EMR. ASSESSMENT: 1. Acute on chronic multi-drug resistant urinary tract infection. Her culture is positive for Klebsiella. 2. History of meningitis. 3. Constipation. 4. Chronic back pain presently on pain management per Dr. Adame in [place]. 5. Hypothyroidism. 6. Bipolar depression. PLAN: We will continue present supportive care. At this time, we are coordinating for outpatient antibiotic therapy. She has a PICC line. [facility] will assist her in doing her PICC line care as well as assisting with her antibiotic infusions. She will need a total of 14 days of antibiotic therapy per Dr. Gabriel, Infectious Disease. I have also given her another dose of Milk of Magnesia and we will put her on daily MiraLAX. Hopefully, she will be discharged tomorrow. [facility][id number] [facility]
[2020-07-05] MEDS ORDERED: MAGNESIUM HYDROXIDE 30 ML UD ONE (16:45)
[2020-07-05] MEDS ORDERED: MORPHINE SULFATE INJ 10 MG/ML VIAL IV ONE (17:36)
[2020-07-05] MEDS ORDERED: MAGNESIUM HYDROXIDE 30 ML UD PO ONE (18:00)
[2020-07-05] MEDS: DOXEPIN HCL 50 MG PO SCH (20:39)
[2020-07-06] MEDS: MEROPENEM 1 GM in SODIUM CHL 0.9% 50ML MIN-BAG+ 50 ML IVPB SCH ×3 (00:30→17:11)
[2020-07-06] MEDS ORDERED: LEVOTHYROXINE SODIUM 0.025 MG TAB ONE (05:28)
[2020-07-06] MEDS: LEVOTHYROXINE SODIUM 0.025 MG TAB PO SCH (05:46)
[2020-07-06] MEDS: PANTOPRAZOLE SODIUM IV 40 MG VIAL IV SCH (05:46)
[2020-07-06] MEDS: SUCRALFATE 1 GM TAB PO SCH ×2 (06:02→16:56)
[2020-07-06] MEDS: SODIUM CHLORIDE 0.9% (FLUSH) 10 ML SYG IV SCH ×2 (07:56→20:55)
[2020-07-06] MEDS: BIFIDOBACTERIUM INFANTIS 4 MG CAP PO SCH (08:30)
[2020-07-06] MEDS: ENOXAPARIN SODIUM 40 MG/0.4 ML SYG SUBCU SCH (08:30)
[2020-07-06] MEDS: DICYCLOMINE HCL 20 MG TAB PO SCH ×2 (08:30→20:54)
[2020-07-06] MEDS: ESCITALOPRAM 10 MG TAB PO SCH (08:30)
[2020-07-06] MEDS: POLYETHYLENE GLYCOL 3350 17 GM PCKT PO SCH (08:37)
[2020-07-06] MEDS ORDERED: LINEZOLID IV 600 MG in PREMIX BAG 1 BAG IVPB ONE (11:20)
[2020-07-06] MEDS ORDERED: LINEZOLID IV 300 ML IVPB ONE (11:24)
[2020-07-06] MEDS ORDERED: VANCOMYCIN HCL INJ 750 MG in SODIUM CHLORIDE 0.9% 250ML 250 ML IVPB ONE (13:57)
[2020-07-06] MEDS ORDERED: VANCOMYCIN PER PHARMACY IVPB SCH (14:00)
[2020-07-06] MEDS ORDERED: VANCOMYCIN HCL INJ 1,000 MG VIAL IVPB ONE ×2 (14:32→19:31)
[2020-07-06] MEDS ORDERED: SODIUM CHL 0.9% 250ML (AVIVA) 250 ML IVPB ONE ×2 (14:32→19:31)
--- NOTE | 2020-07-06 20:49 | PN ---
SUPERVISING PHYSICIAN: Harvey Mcmanus M.D. DATE: 07/06/20 SUBJECTIVE: The patient had actually been discharged to go home when her current urine culture and sensitivity came back. It will require IV antibiotics in addition to her Merrem. I discussed with the patient that we would most likely need to keep her in the hospital for now as she will have to have her levels monitored due to the fact that we are putting her on Vancomycin, and that we would work with [employer] [facility] to see if we can get her discharged on the additional medications. OBJECTIVE: VITAL SIGNS: 98.2, heart rate 72, blood pressure 118/75, respiratory rate 16, O2 saturation 97% on room air. RESPIRATORY: Essentially clear to auscultation bilaterally. CARDIAC: Regular rate and rhythm. NEUROLOGIC: She is awake, alert and oriented times three. LABORATORY: Preliminary blood cultures show no growth after 24 hours. Urine culture shows Enterococcus faecium. All other labs and films have been reviewed via the EMR. ASSESSMENT: 1. Acute on chronic multi-drug resistant urinary tract infection. Her prior culture is positive for Klebsiella. Current urine culture is positive for Enterococcus faecium. 2. History of meningitis. 3. Constipation. 4. Chronic back pain presently on pain management per Dr. Adame in [place]. 5. Hypothyroidism. 6. Bipolar depression. PLAN: We will continue present supportive care at this point. Will need to call [facility] the [facility] to discontinue her home health for now. Will have to reevaluate on Wednesday. I am going to add Vancomycin to her medications because of her new culture results. We will monitor her renal function because she has 2 drug resistant bacteria requiring IV antibiotics. Most likely will need to stay in the hospital for a 14 day treatment and have multiple dosings of her antibiotics. Initially I had ordered some Zyvox but because she is on so many psychiatric medications the incidence of serotonin syndrome is greatly increased on Zyvox. We will continue Vancomycin per pharmacy protocol. Will hold on any labs for now as they are fairly stable other than her Vancomycin levels. Will continue to monitor closely and follow as needed. [facility][id number]
[2020-07-06] MEDS: DOXEPIN HCL 50 MG PO SCH (20:54)
[2020-07-06] MEDS: VANCOMYCIN HCL INJ 750 MG in SODIUM CHLORIDE 0.9% 250ML 250 ML IVPB SCH (20:55)
[2020-07-06] MEDS ORDERED: MORPHINE SULFATE INJ 10 MG/ML VIAL IV ONE (21:49)
[2020-07-06] MEDS ORDERED: MORPHINE SULFATE INJ 10 MG/ML VIAL IV PRN (22:19)
[2020-07-07] MEDS: MEROPENEM 1 GM in SODIUM CHL 0.9% 50ML MIN-BAG+ 50 ML IVPB SCH ×3 (00:14→16:16)
[2020-07-07] MEDS: ONDANSETRON INJ 4 MG/2 ML VIAL IV PRN (00:52)
[2020-07-07] MEDS: SUCRALFATE 1 GM TAB PO SCH ×2 (06:05→16:16)
[2020-07-07] MEDS: PANTOPRAZOLE SODIUM IV 40 MG VIAL IV SCH (06:05)
[2020-07-07] MEDS: LEVOTHYROXINE SODIUM 0.025 MG TAB PO SCH (06:05)
[2020-07-07] MEDS: ESCITALOPRAM 10 MG TAB PO SCH (08:30)
[2020-07-07] MEDS: DICYCLOMINE HCL 20 MG TAB PO SCH ×2 (08:30→20:12)
[2020-07-07] MEDS: ENOXAPARIN SODIUM 40 MG/0.4 ML SYG SUBCU SCH (08:31)
[2020-07-07] MEDS: BIFIDOBACTERIUM INFANTIS 4 MG CAP PO SCH (08:31)
[2020-07-07] MEDS: POLYETHYLENE GLYCOL 3350 17 GM PCKT PO SCH (08:31)
[2020-07-07] MEDS: SODIUM CHLORIDE 0.9% (FLUSH) 10 ML SYG IV SCH ×2 (08:31→20:12)
[2020-07-07] MEDS ORDERED: VANCOMYCIN HCL INJ 1,000 MG VIAL IVPB ONE ×2 (09:09→21:04)
[2020-07-07] MEDS ORDERED: SODIUM CHL 0.9% 250ML (AVIVA) 250 ML IVPB ONE (09:10)
[2020-07-07] MEDS ORDERED: MAGNESIUM SULFATE PREMIX 2GM 2 GM in PREMIX BAG 1 BAG IVPB ONE (09:11)
[2020-07-07] MEDS: VANCOMYCIN HCL INJ 750 MG in SODIUM CHLORIDE 0.9% 250ML 250 ML IVPB SCH ×2 (09:18→21:20)
[2020-07-07] MEDS ORDERED: MAGNESIUM SULFATE PREMIX 2GM 50 ML IVPB ONE (11:29)
--- NOTE | 2020-07-07 15:00 | PN ---
SUPERVISING PHYSICIAN: Harvey Mcmanus M.D. DATE: 07/07/20 SUBJECTIVE: Last night, the patient had problems with her pain control as well as she was anxious. She thought she was having a recurrence of her bacterial meningitis. We discussed her case at length and she felt that she was having a recurrence because her lower back was hurting and her legs were twitching. She had no complaints of headache, stiff neck or mental status changes. I reassured her today that her lab has been stable as well as her vital signs and she felt that she was just anxious because she was having to stay in the hospital a few more days. OBJECTIVE: VITAL SIGNS: Temperature 98.1, heart rate 77, blood pressure 104/56, respiratory rate 16, O2 saturation 94% on room air. NECK: Supple without mass. RESPIRATORY: Essentially clear to auscultation bilaterally. CARDIAC: Regular rate and rhythm. NEUROLOGIC: She is awake, alert and oriented times three. Cranial nerves II through XII are grossly intact as tested. EXTREMITIES: She moves all extremities equally. LABORATORY: WBC 6.9 with hemoglobin 12.2, hematocrit 36.3. ESR is 30, electrolytes are basically within normal limits with the exception of her magnesium slightly low at 1.7. CRP is 1. Preliminary blood cultures show no growth after 3 days.. All other labs and films have been reviewed via the EMR. ASSESSMENT: 1. Acute on chronic multi-drug resistant urinary tract infection. Her prior culture is positive for Klebsiella. Current urine culture is positive for Enterococcus faecium. 2. History of meningitis. 3. Constipation. 4. Chronic back pain presently on pain management per Dr. Adame in [place]. 5. Hypothyroidism. 6. Bipolar depression. PLAN: We will continue present supportive care including her vancomycin and her Merrem. She most likely will have to stay for a total of 14 days of treatment due to her the resistance of the blood bacteria and then need for IV antibiotics. We will monitor her neuro status closely and followup as needed. [id number] [facility]
[2020-07-07] MEDS: IV SET AND CAP CHANGE INJ INJ SCH (16:16)
[2020-07-07] MEDS: DOXEPIN HCL 50 MG PO SCH (20:12)
[2020-07-07] MEDS ORDERED: SODIUM CHLORIDE 0.9% 250ML 250 ML ONE (21:04)
[2020-07-08] MEDS: MEROPENEM 1 GM in SODIUM CHL 0.9% 50ML MIN-BAG+ 50 ML IVPB SCH ×2 (00:12→08:18)
[2020-07-08] MEDS: PANTOPRAZOLE SODIUM IV 40 MG VIAL IV SCH (06:02)
[2020-07-08] MEDS: LEVOTHYROXINE SODIUM 0.025 MG TAB PO SCH (06:02)
[2020-07-08] MEDS: SUCRALFATE 1 GM TAB PO SCH ×2 (06:03→16:22)
[2020-07-08] MEDS: ENOXAPARIN SODIUM 40 MG/0.4 ML SYG SUBCU SCH (08:19)
[2020-07-08] MEDS: BIFIDOBACTERIUM INFANTIS 4 MG CAP PO SCH (08:19)
[2020-07-08] MEDS: DICYCLOMINE HCL 20 MG TAB PO SCH ×2 (08:19→21:23)
[2020-07-08] MEDS: ESCITALOPRAM 10 MG TAB PO SCH (08:19)
[2020-07-08] MEDS: POLYETHYLENE GLYCOL 3350 17 GM PCKT PO SCH (08:19)
[2020-07-08] MEDS: SODIUM CHLORIDE 0.9% (FLUSH) 10 ML SYG IV SCH ×2 (08:20→21:23)
[2020-07-08] MEDS: VANCOMYCIN HCL INJ 750 MG in SODIUM CHLORIDE 0.9% 250ML 250 ML IVPB SCH ×2 (09:00→21:23)
[2020-07-08] MEDS: ERTAPENEM 1 GM in SODIUM CHL 0.9% 50ML MIN-BAG+ 50 ML IVPB SCH (11:52)
[2020-07-08] MEDS: ONDANSETRON INJ 4 MG/2 ML VIAL IV PRN (12:52)
--- NOTE | 2020-07-08 14:03 | PN ---
SUPERVISING PHYSICIAN: Darrion Zurita MD DATE: 07/08/20 SUBJECTIVE: The patient is sitting up in bed. She has been walking in the hallways. We discussed her discharge plan which will be to do her antibiotic therapy here at the hospital. She has agreed to do outpatient antibiotics, but will not be able to be discharged until tomorrow as she will not have a ride to the hospital or one to pick her up, so she will complete her IV antibiotics today and early in the morning, then we will discharge home. OBJECTIVE: VITAL SIGNS: Temperature 98.2, heart rate 78, blood pressure 132/80, respiratory rate 16, O2 saturation 94% on room air. RESPIRATORY: Essentially clear to auscultation bilaterally. CARDIAC: Regular rate and rhythm. NEUROLOGIC: She is awake, alert and oriented times three. LABORATORY: Preliminary blood cultures show no growth after 3 days. All other labs and films have been reviewed via the EMR. ASSESSMENT: 1. Acute on chronic multi-drug resistant urinary tract infection. Her prior culture is positive for Klebsiella. Current urine culture is positive for Enterococcus faecium. 2. History of meningitis. 3. Constipation. 4. Chronic back pain presently on pain management per Dr. Adame in [place]. 5. Hypothyroidism. 6. Bipolar depression. PLAN: We will continue present supportive care. She is set up for outpatient antibiotic therapy twice daily for a total of 14 days of both regimens. She will be discharged tomorrow after her morning antibiotic infusion. I did change her from Merrem to Invanz as Merrem is 3 times a day and Invanz is once daily. She will get her Invanz with her vancomycin in the morning. She will do her vancomycin per pharmacy protocol. She is to get a urine culture prior to discontinuance of her PICC line. We will follow and treat as needed. #[id number] [facility]
[2020-07-08] MEDS ORDERED: MAGNESIUM SULFATE PREMIX 2GM 2 GM in PREMIX BAG 1 BAG IVPB ONE (14:40)
[2020-07-08] MEDS: DOXEPIN HCL 50 MG PO SCH (21:23)
[2020-07-09] MEDS: SUCRALFATE 1 GM TAB PO SCH (06:05)
[2020-07-09] MEDS: PANTOPRAZOLE SODIUM IV 40 MG VIAL IV SCH (06:05)
[2020-07-09] MEDS: LEVOTHYROXINE SODIUM 0.025 MG TAB PO SCH (06:05)
[2020-07-09] MEDS: POLYETHYLENE GLYCOL 3350 17 GM PCKT PO SCH (08:19)
[2020-07-09] MEDS: ENOXAPARIN SODIUM 40 MG/0.4 ML SYG SUBCU SCH (08:20)
[2020-07-09] MEDS: ESCITALOPRAM 10 MG TAB PO SCH (08:20)
[2020-07-09] MEDS: BIFIDOBACTERIUM INFANTIS 4 MG CAP PO SCH (08:20)
[2020-07-09] MEDS: DICYCLOMINE HCL 20 MG TAB PO SCH (08:20)
[2020-07-09] MEDS: VANCOMYCIN HCL INJ 750 MG in SODIUM CHLORIDE 0.9% 250ML 250 ML IVPB SCH (08:20)
[2020-07-09] MEDS: SODIUM CHLORIDE 0.9% (FLUSH) 10 ML SYG IV SCH (08:21)
[2020-07-09 08:42] VITALS: BP 111/74; TEMP 97.9; O2SAT 94
[2020-07-09] MEDS: ERTAPENEM 1 GM in SODIUM CHL 0.9% 50ML MIN-BAG+ 50 ML IVPB SCH (10:18)
--- NOTE | 2020-07-09 13:20 | DS ---
SUPERVISING PHYSICIAN: Darrion Zurita MD ADMISSION DIAGNOSIS: 1. Acute on chronic multi-drug resistant urinary tract infection, positive for Klebsiella. 2. History of meningitis. 3. Constipation. 4. Chronic back pain presently on pain management per Dr. Adame in [place]. 5. Hypothyroidism. 6. Bipolar disorder. DISCHARGE DIAGNOSIS: 1. Acute on chronic multi-drug resistant urinary tract infection, positive for Klebsiella and Enterococcus. 2. History of meningitis. 3. Constipation. 4. Chronic back pain presently on pain management per Dr. Adame in [place]. 5. Hypothyroidism. 6. Bipolar disorder. HOSPITAL COURSE: This is a 64-year-old female who has a significant history for urinary tract infections. She went to [facility] and saw the nurse practitioner several weeks ago for recurrent urinary tract infection. The DRILLING INSPECTOR set her up with a urologist and prior to sending to the urologist put her on Macrobid. The patient saw the urologist and urine culture was done and the patient was placed on Cipro. She finished her Cipro prescription yesterday and her urinalysis came back with drug resistant Klebsiella. It is resistant to all p.o. medications. Therefore, she was referred for direct admission. Vital signs were stable upon admission. Additional urine culture was done through the admission and showed multidrug resistant Enterococcus. PICC line was placed. Infectious Disease was contacted. It is recommended that the patient be on 14 days total of vancomycin IV as well as Invanz for the Enterococcus and Klebsiella respectively. This has been set up for her to come as an outpatient. Therefore, she will be discharged today in stable condition. I have gotten a followup appointment for her with Suzi Concepcion NP, for 07/15/20 at 11:00. Diet is as tolerated. Activity is as tolerated as well. [facility][id number] [facility]
== END 2020-07-09 11:00 | disposition home health service (06) | DRG 690 ==
LOC: MS 13:07
PROVIDERS: ADMIT Nurse Practitioner Acute Care; ATTEND Nurse Practitioner
PROC: 02HV33Z Insertion of Infusion Device into Superior Vena Cava, Percutaneous Approach (ICD-10-PCS; principal; 2020-07-04)
PROC: BW2110Z Computerized Tomography (CT Scan) of Abdomen and Pelvis using Low Osmolar Contrast, Unenhanced and Enhanced (ICD-10-PCS; 2020-07-04)
DX: N39.0 Urinary tract infection, site not specified (principal); Z16.24 Resistance to multiple antibiotics; E87.6 Hypokalemia; E83.42 Hypomagnesemia; B95.2 Enterococcus as the cause of diseases classified elsewhere; B96.1 Klebsiella pneumoniae [K. pneumoniae] as the cause of diseases classified elsewhere; K59.00 Constipation, unspecified; G89.29 Other chronic pain; M54.9 Dorsalgia, unspecified; E03.9 Hypothyroidism, unspecified; F31.9 Bipolar disorder, unspecified; Z88.0 Allergy status to penicillin; Z88.2 Allergy status to sulfonamides; Z88.8 Allergy status to other drugs, medicaments and biological substances; Z87.891 Personal history of nicotine dependence

== ENCOUNTER → 2020-08-26 | Outpatient (CLI) | payer BC ==
--- NOTE | 2020-08-27 07:50 | US ---
EXAM DESCRIPTION: Soft Tissue,Head/Neck CLINICAL HISTORY: 64 years, Female, SUPRASTERNAL MASS COMPARISON: None. FINDINGS: Directed ultrasound in the right lower neck and area of palpable concern shows a deep subcutaneous hypoechoic mass 1.6 x 0.7 cm in size. No other findings of note. IMPRESSION: 1. In the area of palpable concern there is a hypoechoic solid mass. Further evaluation of the neck with CT neck with contrast is recommended. Electronically signed by: Anthony Villanueva MD 08/27/2020 7:48 AM [facility]
== END ==
LOC: US 14:35
PROVIDERS: ATTEND Nurse Practitioner
DX: R22.1 Localized swelling, mass and lump, neck (principal)

== ENCOUNTER → 2020-09-18 | Outpatient (CLI) | payer BC ==
--- NOTE | 2020-09-19 07:30 | CT ---
EXAM DESCRIPTION: Soft Tissue Neck w/Contrast CLINICAL HISTORY: 64 years, Female, localized swelling, mass and lump COMPARISON: August 26, 2020 TECHNIQUE: CT of the neck is performed during IV administration of 100 mL of IV contrast. MPR images are created and reviewed as well. FINDINGS: No pathologic lymphadenopathy detected. I do not detect a worrisome finding in the area of concern right supraclavicular. Currently there is no worrisome correlated with the ultrasound finding which was likely a reactive node which has resolved. Normal appearing cervical lymph nodes are present. Bilateral sternoclavicular joint arthritis right greater than left with hypertrophic marginal changes. On the right side particularly this may be palpable Cervical airway normal. Salivary glands and thyroid gland normal. Pulmonary apices clear. IMPRESSION: Normal study. This exam was performed according to our departmental dose-optimization program, which includes automated exposure control, adjustment of the mA and/or kV according to patient size and/or use of iterative reconstruction technique. Electronically signed by: Anthony Villanueva MD 09/19/2020 7:29 AM [facility]
== END ==
LOC: YCFC.O 09:13
PROVIDERS: ATTEND Nurse Practitioner
DX: Z01.812 Encounter for preprocedural laboratory examination (principal); R22.1 Localized swelling, mass and lump, neck; R39.9 Unspecified symptoms and signs involving the genitourinary system

== ENCOUNTER 2020-10-06 17:52 | Emergency (ER) | payer BC ==
[2020-10-06 18:41] VITALS: TEMP 98.6; O2SAT 96
[2020-10-06] MEDS ORDERED: HYDROmorphone HCL INJ 2 MG/ML VIAL IM ONE (19:04)
--- NOTE | 2020-10-06 19:10 | ED.PDOC ---
History of Present Illness - General Chief Complaint: General Stated Complaint: low back pain/diarrhea/med withdrawal Time Seen by Provider: 10/06/20 19:04 Additional Information: Patient is a 64-year-old female who presents to the ED with chief complaint of low back pain radiating into her legs. Patient indicates she has chronic low back pain for at least 6 years following an episode of spinal meningitis. Patient sees a pain treatment doctor and takes OxyContin. She indicates she has been out of her OxyContin for the past 2 days and she is experiencing an exacerbation of her chronic typical pain. Patient has no new symptoms only ex acerbation of her pain. Patient specifically denies difficulty walking, bowel or bladder dysfunction, fever, chills, nausea, vomiting. Patient has no other complaints. - History of Present Illness Allergies/Adverse Reactions: Allergies Penicillins Allergy (Verified 07/04/20 13:18) Sulfa Antibiotics Allergy (Verified 07/04/20 13:18) Trazodone Allergy (Verified 07/04/20 13:18) Home Medications: Ambulatory Orders Escitalopram [Lexapro] 1 tablet PO DAILY 05/03/19 Sucralfate 1 gm PO BID 05/03/19 Dicyclomine HCl [Bentyl] 20 mg PO BID 03/26/20 Levothyroxine Sodium [Euthyrox] 25 mcg PO DAILY 03/26/20 Oxycodone HCl [Roxicodone] 15 mg PO Q6H PRN 03/26/20 Magnesium [Magnesium 250 mg] 1 tab PO DAILY 04/11/20 Methylcellulose (Laxative) [Citrucel] 3 tablet PO DAILY 04/11/20 Potassium 99 mg PO DAILY 04/11/20 Cranberry (Vaccinium Macrocarp [Cranberry] 300 mg PO DAILY 07/04/20 Doxepin HCl [Doxepin Hydrochloride] 50 mg PO BEDTIME 07/04/20 Estradiol Vaginal [Estradiol] 0.5 gm VAG BIW 07/04/20 Mirabegron [Myrbetriq] 50 mg PO BEDTIME 07/04/20 Multiple Vitamin [Multi Vitamin] 1 tab PO DAILY 07/04/20 Naloxone HCl [Narcan] 1 spray SHANTEL TID PRN 07/04/20 Omeprazole [Omeprazole Dr] 40 mg PO DAILY 07/04/20 Ondansetron HCl [Ondansetron Hydrochloride] 4 mg PO BID PRN 07/04/20 Probiotic Product [Probiotic] 1 tab PO DAILY 07/04/20 Polyethylene Glycol 3350 [Miralax] 8.5 gm PO DAILY pckt 07/06/20 Ertapenem [Invanz] 1 gm IVPB Q24H vial 07/09/20 Vancomycin Per Pharmacy 1 ea IVPB ONCE each 07/09/20 Review of Systems - Review of Systems Constitutional: States: no symptoms reported. Denies: chills, fever EENTM: States: no symptoms reported Respiratory: States: no symptoms reported. Denies: cough, short of breath Cardiology: States: no symptoms reported. Denies: chest pain, palpitations Gastrointestinal/Abdominal: States: no symptoms reported. Denies: abdominal pain, nausea, vomiting Neurological: States: paresthesia - Chronic in legs.. Denies: headache All other Systems: Reviewed and Negative Past Medical History (General) - Patient Medical History Hx Seizures: No Hx Stroke: No Hx Dementia: No Hx Asthma: No Hx of COPD: No Hx Cardiac Disorders: No Hx Congestive Heart Failure: No Hx Pacemaker: No Hx Hypertension: No Hx Thyroid Disease: Yes Hx Diabetes: No Hx Gastroesophageal Reflux: Yes Hx Renal Disease: No Hx Cancer: No Hx of HIV: No Hx Hepatitis C: No Hx MRSA: No Surgical History: other - Vaccination History Hx Tetanus, Diphtheria Vaccination: No Hx Influenza Vaccination: No Hx Pneumococcal Vaccination: No - Social History Hx Tobacco Use: Yes - quit tobacco Hx Chewing Tobacco Use: No Hx Alcohol Use: No Hx Substance Use: No Hx Substance Use Treatment: No Hx Depression: No Hx Physical Abuse: No Hx Emotional Abuse: No Hx Suspected Abuse: No - Female History Patient : No Family Medical History - Family History Mother Family History: Unknown Living Status: Unknown Hx Family Cancer: Yes Father Living Status: Unknown Hx Family Cancer: Yes - and brother Physical Exam - Physical Exam General Appearance: Alert, Comfortable, No apparent distress, Well Developed, Well Nourished Cardiovascular/Respiratory: no respiratory distress Back Exam: normal inspection, no CVA tenderness, no vertebral tenderness, other - Normal inspection low back. Patient able to lay down and sit up from the bed without difficulty Neurologic: no motor/sensory deficits, alert, normal mood/affect, oriented x 3 Skin Exam: normal color, warm/dry Progress - Progress Progress: 10/06/20 19:11 Patient with chronic low back pain for years who presents to the ED for pain shot. I discussed with patient that I cannot prescribe her narcotics for home use but I can control her pain in the ED. Patient indicates she is completely happy with that and she will follow-up with her pain doctor tomorrow. Patient has no new adverse neurologic symptoms, there is no indication for formal ED work-up today. Patient is comfortable and her vital signs are stable. Departure - Departure Clinical Impression: Chronic low back pain Qualifiers: Back pain laterality: bilateral Sciatica presence: unspecified whether sciatica present Qualified Code(s): M54.5 - Low back pain; G89.29 - Other chronic pain Time of Disposition: 19:12 Disposition: Discharge to Home or Self Care Condition: Good Departure Forms: ED Discharge - Pt. Copy, Patient Portal Self Enrollment Referrals: Suzi Concepcion FNP [Primary Care Provider] - 1-2 Days Home Medications: Ambulatory Orders Escitalopram [Lexapro] 1 tablet PO DAILY 05/03/19 Sucralfate 1 gm PO BID 05/03/19 Dicyclomine HCl [Bentyl] 20 mg PO BID 03/26/20 Levothyroxine Sodium [Euthyrox] 25 mcg PO DAILY 03/26/20 Oxycodone HCl [Roxicodone] 15 mg PO Q6H PRN 03/26/20 Magnesium [Magnesium 250 mg] 1 tab PO DAILY 04/11/20 Methylcellulose (Laxative) [Citrucel] 3 tablet PO DAILY 04/11/20 Potassium 99 mg PO DAILY 04/11/20 Cranberry (Vaccinium Macrocarp [Cranberry] 300 mg PO DAILY 07/04/20 Doxepin HCl [Doxepin Hydrochloride] 50 mg PO BEDTIME 07/04/20 Estradiol Vaginal [Estradiol] 0.5 gm VAG BIW 07/04/20 Mirabegron [Myrbetriq] 50 mg PO BEDTIME 07/04/20 Multiple Vitamin [Multi Vitamin] 1 tab PO DAILY 07/04/20 Naloxone HCl [Narcan] 1 spray SHANTEL TID PRN 07/04/20 Omeprazole [Omeprazole Dr] 40 mg PO DAILY 07/04/20 Ondansetron HCl [Ondansetron Hydrochloride] 4 mg PO BID PRN 07/04/20 Probiotic Product [Probiotic] 1 tab PO DAILY 07/04/20 Polyethylene Glycol 3350 [Miralax] 8.5 gm PO DAILY pckt 07/06/20 Ertapenem [Invanz] 1 gm IVPB Q24H vial 07/09/20 Vancomycin Per Pharmacy 1 ea IVPB ONCE each 07/09/20
[2020-10-06 19:17] VITALS: BP 132/92
== END 2020-10-06 19:17 | disposition home or self-care (01) ==
LOC: ER 17:52
DX: M54.5 Low back pain (principal); G89.29 Other chronic pain; K21.9 Gastro-esophageal reflux disease without esophagitis; E07.9 Disorder of thyroid, unspecified; Z86.61 Personal history of infections of the central nervous system; Z87.891 Personal history of nicotine dependence; Z79.899 Other long term (current) drug therapy; Z88.0 Allergy status to penicillin; Z88.2 Allergy status to sulfonamides; Z88.5 Allergy status to narcotic agent; Z79.891 Long term (current) use of opiate analgesic